=== PATIENT | male | born 1970 | race Caucasian/White ===

== ENCOUNTER 2016-11-13 15:27 | Emergency (ER) | payer BC ==
[2016-11-13 15:49] VITALS: BP 137/77; PULSE 103; TEMP 98.5; BMI 34.4
[2016-11-13] MEDS ORDERED: ACETAMINOPHEN 500 MG TABLET (FP) PO ONE (16:48)
--- NOTE | 2016-11-13 16:50 | PDOC ---
History of Present Illness - General Chief Complaint: Injury Stated Complaint: FALL NOT JOB INJURY Time Seen by Provider: 11/13/16 16:16 History Source: Patient Exam Limitations: No Limitations - History of Present Illness Initial Comments: 11/13/16 18:38 Chief complaint: Fall down 5 stairs forward twisting left foot and ankle, worsening lower back pain and right shoulder pain History of present illness: Patient is a 46-year-old male [place] whitewas[employer]. who is been out on disability with history of hypertension, anxiety, depression, social anxiety and posttraumatic stress syndrome. Pt. arrived here via ambulance. Patient reports that he was walking down carpeted steps in his home when he twisted his left foot and ankle causing him to fall forward in his head and landing with his right arm stretched outward. He reports that he does not remember anything for at least 30 seconds to a minute or 2 then felt groggy afterwards for 10-15 minutes.. Patient denies any change in vision or level of alertness except for grogginess for 10-15 minutes immediately after fall, or any nausea, vomiting or hemotympanum. Patient reports that he has had surgery on his right shoulder and rt. bicep ice with last surgery 07/01/2016. Patient reports that shoulder pain is currently a 9 prior to fall was a 2. Patient also has slight decreased range of motion of shoulder but since falling laterally posteriorly and anteriorly it has increased. Patient also has a history of bulging disc L2-L3, L4-L5 and a herniated disc L5- S1 with chronic lower back pain with radiculopathy down right leg to foot that he normally has. Patient reports that lower back pain currently is a 9 prior to this fall was a 3. Patient reports that he has left lateral ankle and foot pain that is currently a 5 out of 10. Patient has minimal swelling to his left dorsal foot. Patient also reports headache that currently as a 6 out of 10 throbbing. Pt. denies hitting anything for pain prior to arrival here. Patient reports the pain in the lower back is worse with bending forward and right shoulder pain is worse with raising his arm. He denies any numbness of his right arm. Patient reports having tingling in his right leg. Patient denies any saddle anesthesia or any incontinency. Pt. reports slight mid neck pain that currently is a 2 out of 10 with no numbness of arms b/l. 05/31/17 19:23 11/13/16 19:24 11/13/16 20:16 11/14/16 08:55 Occurred: reports: this afternoon Severity: reports: severe Pain Location: reports: back (worsening pain lower back with radiation down rt. posterior buttock/leg to ft.), head (frontal), lower extremity (left ankle/foot) , upper extremity (rt. shoulder) Method of Injury: Yes: fall Loss of Consciousness: unsure Associated Symptoms (Fall): headache (frontal), neck pain (minimal neck posterior), other (lower back with radiation down rt buttock/ leg to foot, left ankle/foot , rt. shoulder) Past History - Past Medical History Allergies/Adverse Reactions: Allergies Allergy/AdvReac Type Severity Reaction Status Date / Time No Known Allergies Allergy Verified 11/13/16 15:42 Home Medications: Ambulatory Orders Losartan Potassium 100 mg PO DAILY 03/25/15 Clonazepam [Klonopin] 2 mg PO BID 11/13/16 Duloxetine HCl [Cymbalta] 20 mg PO DAILY 11/13/16 Gabapentin 300 mg PO TID 11/13/16 Metoprolol Tartrate [Lopressor -] 50 mg PO DAILY 11/13/16 Cardiac Disorders: Yes (EKG CHANGES: 11/2014) HTN: Yes Psychiatric Problems: Yes (anxiety depression ptsd, social anxiety d/o ) Suicide Attempt (Hx): No Other medical history: lumbar bulging disc L2-L3, L4- L5, L5-S1 herniation - Surgical History Orthopedic Surgery: Yes (rt. shoulder supraspinatous X 2, bicep repair X 2, ) - Psycho/Social/Smoking Cessation Hx Anxiety: No Suicidal Ideation: No Smoking Status: No Smoking History: Never smoked Have you smoked in the past 12 months: No Number of Cigarettes Smoked Daily: 0 Information on smoking cessation initiated: No Hx Alcohol Use: No Drug/Substance Use Hx: No Substance Use Type: Alcohol Review of Systems - Review of Systems Able to Perform ROS?: Yes Constitutional: No: Symptoms Reported HEENTM: No: Symptoms Reported Respiratory: No: Symptoms reported Cardiac (ROS): No: Symptoms Reported ABD/GI: No: Symptoms Reported : No: Symptoms Reported Musculoskeletal: Yes: Back Pain (lower back with worsening pain with radiation down rt. leg), Joint Pain (left ankle/foot), Joint Swelling (left doral lateral foot), Neck Pain (minimal posterior neck midline ), Other (rt. shoulder pain worsening pain ) Integumentary: No: Symptoms Reported Neurological: Yes: Headache (frontal ), Tingling (right leg intermittently ) *Physical Exam - Vital Signs Last Vital Signs Temp Pulse Resp BP Pulse Ox 98.5 F 103 H 20 137/77 97 11/13/16 15:43 11/13/16 15:43 11/13/16 15:43 11/13/16 15:43 11/13/16 15:43 - Physical Exam General Appearance: Yes: Appropriately Dressed HEENT: positive: EOMI, [place], Normal ENT Inspection Neck: positive: Tender, Tender midline. negative: Decreased range of motion, Lymphadenopathy (R), Lymphadenopathy (L), Rigidity, Tender lateral Respiratory/Chest: positive: Lungs Clear, Normal Breath Sounds. negative: Chest Tender, Respiratory Distress Cardiovascular: positive: Regular Rhythm, Regular Rate, S1, S2 Gastrointestinal/Abdominal: positive: Normal Bowel Sounds, Soft. negative: Tender, Organomegaly, Distended, Guarding, Rebound, Tenderness, Hepatomegaly, Spleenomegaly Musculoskeletal: positive: Normal Inspection, Decreased Range of Motion (rt. shoulder ). negative: CVA Tenderness, CVA Tenderness (R), CVA Tenderness (L) Extremity: positive: Normal Capillary Refill, Normal Inspection, Tender ( rt.shoulder, left lateral ankle/foot dorsal ), Swelling (left lateral dorsal foot). negative: Normal Range of Motion (right shoulder) Integumentary: positive: Normal Color Neurologic: positive: lumber tripper II-XII NML intact, Fully Oriented, Alert, Normal Response, Motor Strength 5/5 (motor strength rt. shoulder decreased 3/4, lower extremities 5/5, left upper extremity 5/5), Respond to painful stimul (b/l ), Responsive. negative: Numbness, Sensory Deficit (legs b/l ) Deep Tendon Reflexes: Knee (L): 4+, Knee (R): 4+ Procedures - Consent Consent obtained: From Patient - Splinting Splint Location: Left: Foot, Ankle Pre-Made Type: aircast Joel Bandage: 3" Complications: No Medical Decision Making - Medical Decision Making 11/13/16 19:24 11/13/16 19:24 Patient is a 46-year-old male [employer] [facility]. who is been out on disability with history of hypertension, anxiety, depression, social anxiety and posttraumatic stress syndrome. Patient reports that he was walking down carpeted steps in his home when he twisted his left foot and ankle causing him to fall forward in his head and landing with his right arm stretched outward. He reports that he does not remember anything for at least 30 seconds to a minute or 2 felt than felt groggy afterwards for 10-15 minutes.. Patient denies any change in vision or level of alertness or any nausea vomiting or hemotympanum. Patient reports that he has had surgery on his right shoulder and rt. bicep ice with last surgery 07/01/2016. Patient reports that shoulder pain is currently a 9 prior to fall was a 2. Patient also has slight worsening or decrease range of motion of shoulder since falling laterally posteriorly and anteriorly. Patient also has a history of bulging disc L2-L3, L4-L5 and a herniated disc L5- S1 with chronic lower back pain with radiculopathy down right leg to foot that he normally has. Patient reports that lower back pain currently is a 9 prior to this fall was a 3. Patient reports that he has left lateral ankle and foot pain that is currently a 5 out of 10. Patient has minimal swelling to his left dorsal foot. Patient also reports headache that currently as a 6 out of 10 throbbing. Pt. denies hitting anything for pain prior to arrival here. Patient reports the pain in the lower back is worse with bending forward and right shoulder pain is worse with raising his arm. He denies any numbness of his right arm. Patient reports having tingling in his right leg. Patient denies any saddle anesthesia or any incontinency. Pt. reports slight mid neck pain that currently is a 2 out of 10 with no numbness of arms b/l. Patient is not on any antiicoagulants. He is with his EAP from [employer]. FAll R/O intracranial bleed R/O rt. shoulder esperanza injury rt. left foot/ankle injury r/o cervical neck injury r/o lumbar back esperanza injury injury Headache posterior neck pain left ankle/foot strain PLAN: CT of head without contrast no acute pathology or intracranial bleeding noted per xray rt. shoulder no discrete fractures identified right shoulder. Several small little numbness sees with sclerotic borders are seen within the humeral head suggestive of degenerative cysts, surgical clip is seen abutting the proximal humeral diametaphysis a long the acromium clavicular joint. A 0.5 cm density is seen adjacent to the posterior border humeral head suggestive of ossified loose osteochondral body. Impression no discrete fractures identified per Dr. Lockhart xray left ankle/foot is no radiographic evidence of acute fracture. A healed fracture of the distal metaphysis is noted. Focal degenerative bony spurring is seen along the tibiotalar joint medially. The left foot demonstrates no definite radiographic abnormality. No fracture is identified per Dr. Lockhart xray lumbar sacral spine there is no radiographic evidence of fracture, no dislocation, mild dextrocurvature as noted could be on the basis of paravertebral muscle spasm. There is possible mild L4-L5 and L5-S1 degenerative disc space narrowing bone detail at those levels is somewhat limited due to superimposed soft tissue on lateral imaging per Dr. Lockhart acetaminophen 1000 mg po now than every 8 hrs prn pain not give narcotic pain medication due to patient being on Klonopin for anxiety Patient complained of further mid posterior neck pain will get x-ray of cervical spine no discrete fractures identified. The C7 level is partially obscured due to overlapping soft tissue. Moderate C5-C6 degenerative disc space narrowing is seen with associated aided spondylosis. Follow Up with your orthopedist as soon as possible Return to emergency room if any new symptoms develop joel wrap air cast left ankle 11/13/16 19:41 DIRECTOR TREASURER Search Terms: Shad Thomas, 1970 Search Date: 11/13/2016 06:13: 49 PM The Drug Utilization Report below displays all of the controlled substance prescriptions, if any, that your patient has filled in the last twelve months. The information displayed on this report is compiled from pharmacy submissions to the Department, and accurately reflects the information as submitted by the pharmacies. This report was requested by: Alia Chiang | Reference #: [id number] Others' Prescriptions Patient Name: Shad Thomas Date: 1970 Address: [address] [place] [address] [place] [address] Sex: Male Rx Written Rx Dispensed Drug Quantity Days Supply Prescriber Name 10/28/2016 11/01/2016 clonazepam 0.5 mg tablet 40 10 Samson Tang MD 10/04/2016 10/04/2016 clonazepam 0.5 mg tablet 120 30 Samson Tang MD 09/26/2016 09/26/2016 clonazepam 0.5 mg tablet 28 7 Samson Tang MD 11/14/16 09:00 11/14/16 09:00 *DC/Admit/Observation/Transfer Diagnosis at time of Disposition: Fall (on) (from) other stairs and steps, initial encounter, Lumbar back pain with radiculopathy affecting right lower extremity, Neck pain, acute Shoulder pain, right Qualifiers: Chronicity: acute Qualified Code(s): M25.511 - Pain in right shoulder Left ankle sprain Qualifiers: Encounter type: initial encounter Involved ligament of ankle: unspecified ligament Qualified Code(s): S93.402A - Sprain of unspecified ligament of left ankle, initial encounter Head injury due to trauma Qualifiers: Encounter type: initial encounter Qualified Code(s): S09.90XA - Unspecified injury of head, initial encounter - Discharge Dispostion Disposition: HOME Condition at time of disposition: Stable - Referrals Referrals: Samson Tang [Primary Care Provider] - Andrey Guerin MD [Staff Physician] - - Patient Instructions Additional Instructions: He was transported by ambulance here today Avoid any strenuous activities Elevate left leg and apply ice to left lateral ankle, right shoulder area every 2 hours for 15 minutes each time today and tomorrow Wear Joel wrap to left foot and ankle and air cast during the day take off at night Return to emergency room if symptoms worsen any weakness of upper or lower extremities or numbness of them Follow up with orthopedist as soon as possible for further evaluation Take acetaminophen thousand milligrams every 8 hours or 650 mg every 6 hours as needed for pain Patient voiced understanding of discharge instructions and all questions were answered
[2016-11-13] MEDS ORDERED: ACETAMINOPHEN 500 MG TABLET (FP) ONE (16:57)
== END 2016-11-13 20:30 | disposition home or self-care (01) ==
LOC: JERFT 15:27
DX: S93.402A Sprain of unspecified ligament of left ankle, initial encounter (principal); S09.90XA Unspecified injury of head, initial encounter; I10 Essential (primary) hypertension; F41.8 Other specified anxiety disorders; F43.10 Post-traumatic stress disorder, unspecified; W10.9XXA Fall (on) (from) unspecified stairs and steps, initial encounter; Y93.89 Activity, other specified; Y92.009 Unspecified place in unspecified non-institutional (private) residence as the place of occurrence of the external cause
CPT/HCPCS: 70450-TC; 72050-TC; 72100-TC; 73030-TC-RT; 73610-TC-LT; 73610-TC-RT; 73630-TC-LT; 73630-TC-RT; 99281-25

== ENCOUNTER 2016-11-18 08:31 | Emergency (ER) | payer BC ==
[2016-11-18 08:46] VITALS: BMI 33.5
--- NOTE | 2016-11-18 09:44 | PDOC ---
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 Patient was in this ED 11/13/16 s/p mechanical fall with head trauma and LOC. At that time he had a negative CT scan of head and no fractures found on x rays. He reports a constant intractable global h/a that is 8/10 w/o tylenol and 6/10 with tylenol. He denies any new focal neuro deficits, no numbness, weakness or paresthesia other than chronic RLE weakness and mild numbness/burning due to herniated disk. He denies n/v, loc, sob, chest pain, palpitations. He is on daily clonazepam due to his psychiatric conditions, 4mg daily last prescribed by his PCP Dr Samson Tang (confirmed), however he ran out today because he has required 6mg/day. He has also been drinking 3-6 beers per day. He used to see psychiatrist Dr Bethany Butcher, but can no longer afford her preciado services and has been unable to find a new psychiatrist who accepts his insurance and takes new patients. He is not open to attending detox. His structural steel engineer captainis at bedside. He is part of the [facility]. He took 6 mg Clonazepam and drank a 6 pack of beer since midnight. 11/18/16 10:13 Timing/Duration: reports: 1 week, constant Severity: Yes: moderate Associated Symptoms: reports: insomnia, slurred speech. denies: loss of consciousness, nausea/vomiting, numbness in legs/feet, paresthesia, seizures, tingling in legs/feet, vision changes Past History - Travel Traveled outside of the country in the last 30 days: No Close contact w/someone who was outside of country & ill: No - Past Medical History Allergies/Adverse Reactions: Allergies Allergy/AdvReac Type Severity Reaction Status Date / Time No Known Allergies Allergy Verified 11/18/16 08:38 Home Medications: Ambulatory Orders Losartan Potassium 100 mg PO DAILY 03/25/15 Clonazepam [Klonopin] 2 mg PO BID 11/13/16 Gabapentin 300 mg PO TID 11/13/16 Metoprolol Tartrate [Lopressor -] 50 mg PO DAILY 11/13/16 Fluoxetine HCl [Prozac] 20 mg PO DAILY 11/18/16 Cardiac Disorders: Yes (EKG CHANGES: 11/2014) HTN: Yes Psychiatric Problems: Yes (anxiety depression ptsd, social anxiety d/o ) Suicide Attempt (Hx): No - Surgical History Orthopedic Surgery: Yes (rt. shoulder supraspinatous X 2, bicep repair X 2, ) - Psycho/Social/Smoking Cessation Hx Anxiety: Yes Suicidal Ideation: No Smoking Status: No Smoking History: Unknown if ever smoked Have you smoked in the past 12 months: No Number of Cigarettes Smoked Daily: 0 Hx Alcohol Use: Yes (3-6 beers/day) Drug/Substance Use Hx: No Substance Use Type: Alcohol Hx Substance Use Treatment: No Patient Lives Alone: Yes Neuro Specific PMHX - Complaint Specific PMHX Glaucoma: No Herniated Disk: Yes Laminectomy: No Migraine: No Multiple Sclerosis: No Neuropathy: No TIA: No Review of Systems - Review of Systems Able to Perform ROS?: Yes Is the patient limited Kazakh proficient: No Constitutional: Yes: Weakness. No: Diaphoresis, Fever HEENTM: No: Blurred Vision, Double Vision Respiratory: No: Cough, Shortness of Breath, Wheezing, Hemoptysis Cardiac (ROS): Yes: Lightheadedness. No: Chest Pain, Irregular Heart Rate, Palpitations, Syncope, Chest Tightness ABD/GI: No: Abdominal Distended, Diarrhea, Nausea, Poor Appetite, Vomiting, Abdominal cramping, Tarry Stools : No: Dysuria Musculoskeletal: No: Muscle Pain Integumentary: No: Bruising, Flushing Neurological: Yes: Headache, Pre-Existing Deficit (rle slight weakness, numbness , pain ), Dizziness. No: Numbness, Paresthesia, Ataxia Psychiatric: Yes: Anxiety, Depression, Emotional Problems Endocrine: No: Flushing, Unexplained Weight Gain, Unexplained Weight Loss, Change in Weight Hematologic/Lymphatic: No: Anemia, Easy Bruising, Bleeding Diathesis *Physical Exam - Vital Signs Last Vital Signs Temp Pulse Resp BP Pulse Ox 97.9 F 74 18 119/77 100 11/18/16 08:38 11/18/16 08:38 11/18/16 08:38 11/18/16 08:38 11/18/16 08:38 - Physical Exam General Appearance: Yes: Nourished, Disheveled, Mild Distress, Intoxicated ( slight smell of alcohol ) HEENT: positive: EOMI, [place]. negative: Normal Voice (slightly slurred ), Photophobia, Scleral Icterus (R), Scleral Icterus (L), Rhinorrhea, Lesions, Batres Neck: positive: Supple. negative: Tender Respiratory/Chest: positive: Lungs Clear, Normal Breath Sounds. negative: Chest Tender, Respiratory Distress, Rhonchi, Wheezing Cardiovascular: positive: Regular Rhythm, Regular Rate, S1, S2. negative: JVD Gastrointestinal/Abdominal: positive: Normal Bowel Sounds, Soft. negative: Tender, Distended, Mass, Hepatomegaly, Spleenomegaly Musculoskeletal: negative: CVA Tenderness Extremity: negative: Calf Tenderness Integumentary: positive: Normal Color, Dry, Warm Neurologic: positive: accounts manager II-XII NML intact, Fully Oriented, Alert, Motor Strength 5/5 (RLW 4+/5), Responsive, Numbness (slight numbness rle). negative: Normal Mood/Affect (anxious ), Facial Droop, Confused, Disoriented Deep Tendon Reflexes: Knee (L): 1+, Knee (R): 1+, Bicep (L): 1+, Bicep (R): 1+ ED Treatment Course - ADDITIONAL ORDERS Additional order review: 11/18/16 10:47 Patient likely suffers from h/a due to postconcussion syndroms. Given that there are no CT findings from last admission and that there are no new neural findings, patient is stable for outpatient managements with NSAIDS or tylenol Patient was recommeded admission to detox center to wean off ETOH but patient declines. Dr Tang contacted and willing to see patient today *DC/Admit/Observation/Transfer Diagnosis at time of Disposition: Headache, Anxiety, Lightheadedness - Discharge Dispostion Disposition: HOME Condition at time of disposition: Good Admit: No
[2016-11-18] MEDS ORDERED: IBUPROFEN 600 MG TABLET (FP) PO ONE ×2 (09:49→10:56)
--- NOTE | 2016-11-18 09:56 | PDOC ---
Attending Attestation - Resident Resident Name: Crys Sharpe - ED Attending Attestation I have performed the following: I have examined & evaluated the patient, The case was reviewed & discussed with the resident, I agree w/resident's findings & plan, Exceptions are as noted - HPI HPI: 11/18/16 09:53 Agree with the resident's HPI as documented in the electronic medical record. - Physicial Exam PE: 11/18/16 09:54 Agree with the resident's physical examination as documented in the electronic medical record. - Medical Decision Making 11/18/16 09:54 46-year-old male with history of 9-11 PTSD, hypertension, alcohol and benzo dependence presents the emergency Department with complaints of headache one week after falling and striking his head; the patient was seen in the ED 1 week ago and had a negative head CT. The patient states that he ran out of his benzos and requests a refill for that prescription. Plan: 1. No need for repeat head CT as the patient is not on anticoagulant therapy. Likely the patient has postconcussive syndrome that can be treated with Tylenol or NSAIDs and follow-up with neurology as an outpatient. 2. The resident has spoken to the patient's primary care physician who is been chronically prescribing him benzos for the past 3 months. His primary care physician is willing to see the patient in his office today. 3. Check an alcohol dependence: The patient was offered detox at [facility] but he declines at this time.
[2016-11-18 11:34] VITALS: BP 120/74; PULSE 78; TEMP 98
== END 2016-11-18 11:29 | disposition home or self-care (01) ==
LOC: JER 08:31
DX: F07.81 Postconcussional syndrome (principal); G44.309 Post-traumatic headache, unspecified, not intractable; F41.8 Other specified anxiety disorders; F43.10 Post-traumatic stress disorder, unspecified
CPT/HCPCS: 99282-25

== ENCOUNTER 2016-11-18 12:12 | Inpatient (IN) | payer OTHER ==
[2016-11-18 14:01] VITALS: BMI 33.5
--- NOTE | 2016-11-18 14:28 | HP ---
CIWA Score - CIWA Score Nausea/Vomitin Muscle Tremors: 3 Anxiety: 3 Agitation: 3 Paroxysmal Sweats: 1-Minimal Palms Moist Orientation: 0-Oriented Tacttile Disturbances: 2-Mild Itch/Numbness/Burn Auditory Disturbances: 2-Mild Harshness/Frighten Visual Disturbances: 2-Mild Sensitivity Headache: 2-Mild CIWA-Ar Total Score: 21 Admission ROS BHS - HPI Chief Complaint: I NEED HELP TO STOP USING ALCOHOL AND KLONOPIN Allergies/Adverse Reactions: Allergies Allergy/AdvReac Type Severity Reaction Status Date / Time No Known Allergies Allergy Verified 11/18/16 08:38 History of Present Illness: THIS 46 YEARS OLD MALE WITH ALCOHOL DEPENDENCE AND KLONOPIN DEPENDENCE, WITHDRAWAL SYMPTOM,NEVER BEEN IN DETOX BEFORE HYPERTENSION ANXIETY,DEPRESSION PTSD NEEDED HELP TO STOP DRINKING AN DKLONOPIN Exam Limitations: No Limitations - Ebola screening Have you traveled outside of the country in the last 21 days: No Have you had contact with anyone from an Ebola affected area: No Have you been sick,other than usual withdrawal symptoms: No - Review of Systems Constitutional: Loss of Appetite, Night Sweats, Changes in sleep, Weakness EENT: reports: Nose Congestion Respiratory: reports: No Symptoms reported Cardiac: reports: No Symptoms Reported GI: reports: Nausea, Vomiting, Abdominal cramping : reports: No Symptoms Reported Musculoskeletal: reports: Back Pain, Muscle Pain Integumentary: reports: Dryness Neuro: reports: Headache, Tremors Endocrine: reports: No Symptoms Reported Hematology: reports: No Symptoms Reported Psychiatric: reports: Anxious (PTSD), Depressed Patient History - Patient Medical History Hx Anemia: No Hx Asthma: No Hx Chronic Obstructive Pulmonary Disease (COPD): No Hx Cancer: No Hx Cardiac Disorders: Yes (EKG CHANGES: 11/2014) Hx Congestive Heart Failure: No Hx Hypertension: Yes (ON MED) Hx Hypercholesterolemia: Yes (ON MED) Hx Pacemaker: No HX Cerebrovascular Accident: No Hx Seizures: No Hx Dementia: No Hx Diabetes: No Hx Gastrointestinal Disorders: No Hx Liver Disease: No Hx Genitourinary Disorders: No Hx Sexually Transmitted Disorders: No Hx Renal Disease (ESRD): No Hx Thyroid Disease: No Hx Human Immunodeficiency Virus (HIV): No (NEGATIVE LAST 2014) Hx Hepatitis C: No Hx Depression: Yes (ANXIETY) Hx Suicide Attempt: No Hx Bipolar Disorder: No Hx Schizophrenia: No Other Medical History: PTSD,NO SUICIDAL,NO HOMICIDAL - Patient Surgical History Past Surgical History: No Hx Orthopedic Surgery: Yes (rt. shoulder supraspinatous X 2, bicep repair X 2, ) - PPD History Previous Implant?: Yes Documented Results: Negative w/o proof Implanted On Prior [facility] Admission?: No PPD to be Administered?: Yes - Smoking Cessation Smoking history: Unknown if ever smoked Have you smoked in the past 12 months: No Aproximately how many cigarettes per day: 0 - Substance & Tx. History Hx Alcohol Use: Yes Hx Substance Use: No Substance Use Type: Alcohol, Tranquilizers Hx Substance Use Treatment: No - Substances Abused Alcohol Route: Oral Frequency: Daily Amount used: 6pk beer Age of first use: 19 Date of Last Use: 11/18/16 Benzodiazepine (Klonopin) Route: Oral Frequency: Daily Amount used: 4-6mg Age of first use: 34 Date of Last Use: 11/18/16 Family Disease History - Family Disease History Family History: Denies Admission Physical Exam [facility] - Vital Signs Vital Signs: Vital Signs - 24 hr 11/18/16 13:54 Temperature 97.5 F L Pulse Rate 79 Respiratory 20 Rate Blood Pressure 126/72 - Physical General Appearance: Yes: Moderate Distress, Tremorous, Irritable, Sweating, Anxious HEENTM: Yes: Nasal Congestion Respiratory: Yes: Lungs Clear, Normal Breath Sounds, No Respiratory Distress Neck: Yes: Within Normal Limits Breast: Yes: Within Normal Limits Cardiology: Yes: Within Normal Limits, Regular Rhythm, Regular Rate, S1, S2 Abdominal: Yes: Within Normal Limits, Normal Bowel Sounds, Non Tender, Flat, Soft Genitourinary: Yes: Within Normal Limits Back: Yes: Muscle Spasm Musculoskeletal: Yes: Back pain, Joint Stiffness, Muscle Pain Extremities: Yes: Tremors Neurological: Yes: nurse practitioner home assessments II-XII NML intact, Fully Oriented, Alert, Motor Strength 5/5 Integumentary: Yes: Dry Lymphatic: Yes: Within Normal Limits - Diagnostic (1) Alcohol dependence with uncomplicated withdrawal Status: Acute (2) Essential hypertension Status: Acute (3) History of atrial fibrillation Status: Acute (4) Low back pain Status: Acute (5) Herniated disc Status: Acute (6) Hypercholesterolemia Status: Acute (7) History of head injury Status: Acute (8) Chronic shoulder pain Status: Acute (9) Anxiety and depression Status: Acute Cleared for Admission [facility] - Detox or Rehab [facility] Level of Care: Medically Managed Detox Regimen/Protocol: Valium [facility] Breath Alcohol Content Breath Alcohol Content: 0 Urine Drug Screen - Results Drug Screen Negative: No Urine Drug Screen Results: BZO-Benzodiazepines
[2016-11-18] MEDS ORDERED: IBUPROFEN 400 MG TABLET (FP) PO PRN (15:24)
[2016-11-18] MEDS ORDERED: MENTHOL/PHENOL 1 EACH UD MM PRN (15:24)
[2016-11-18] MEDS ORDERED: guaiFENesin/D-METHORPHAN HB 10 ML UNIT-DOSE CUPS PO PRN (15:24)
[2016-11-18] MEDS ORDERED: MAGNESIUM HYDROX 2400MG/30ML ORAL SUSPENSION 30 ML CUP PO PRN (15:24)
[2016-11-18] MEDS ORDERED: LOPERAMIDE HCL 2 MG CAPSULE PO PRN (15:24)
[2016-11-18] MEDS ORDERED: diphenhydrAMINE HCL 50 MG CAPSULE PO PRN (15:24)
[2016-11-18] MEDS ORDERED: hydrOXYzine PAMOATE 50 MG CAPSULE (FP) PO PRN (15:24)
[2016-11-18] MEDS ORDERED: ACETAMINOPHEN 325 MG TABLET (FP) PO PRN (15:24)
[2016-11-18] MEDS ORDERED: diazePAM 5 MG TABLET PO PRN (15:24)
[2016-11-18] MEDS ORDERED: MAG HYDROX/AL HYDROX/SIMETH 30 ML UNIT-DOSE CUP PO PRN (15:24)
[2016-11-18] MEDS ORDERED: MAGNESIUM CITRATE 300 ML BOTTLE PO PRN (15:24)
[2016-11-18] MEDS ORDERED: P-EPHED 60MG/TRIPROLIDI 2.5MG TABLET PO PRN (15:24)
[2016-11-18] MEDS ORDERED: diazePAM 5 MG TABLET PO ONE (17:00)
[2016-11-18 18:58] LABS: URINE APPEARANCE CLEAR; URINE BILIRUBIN NEGATIVE (NEGATIVE); URINE BLOOD NEGATIVE (NEGATIVE); URINE COLOR STRAW; URINE GLUCOSE (UA) NEGATIVE (NEGATIVE); URINE KETONE NEGATIVE (NEGATIVE); URINE LEUK ESTERASE NEGATIVE (NEGATIVE); URINE NITRITE NEGATIVE (NEGATIVE); URINE PROTEIN NEGATIVE (NEGATIVE); URINE UROBILINOGEN NEGATIVE E.U./dl (0.2-1.0)
[2016-11-18] MEDS ORDERED: THIAMINE HCL 100 MG TABLET (FP) PO SCH (22:00)
[2016-11-18] MEDS ORDERED: diazePAM 5 MG TABLET PO SCH (22:00)
[2016-11-18 22:07] VITALS: BP 108/65; PULSE 81; TEMP 96.6
--- NOTE | 2016-11-18 23:47 | DS ---
[facility] Detox Discharge Summary Admission Date: 11/18/16 Discharge Date: 11/18/16 - History Present History: Alcohol Dependence, Sedative Dependence Additional Comments: CLIENT HAD AN INCIDENT WITH ANOTHER PATIENT ON THE FLOOR AND STATES HE FEELS THREATENED. HE WAS OFFERED TO BE TRANSFERRED TO [facility] TO CONTINUE HIS DETOX BUT HE REFUSED AND STATED HE WANTED TO LEAVE AMA. - Physical Exam Results Vital Signs: Vital Signs Temperature 96.6 F L 11/18/16 22:06 Pulse Rate 81 11/18/16 22:06 Respiratory Rate 18 11/18/16 22:06 Blood Pressure 108/65 11/18/16 22:06 O2 Sat by Pulse Oximetry (%) - Medication Discharge Medications: Ambulatory Orders Clonazepam [Klonopin] 2 mg PO BID 11/13/16 Gabapentin 300 mg PO TID 11/13/16 Metoprolol Tartrate [Lopressor -] 50 mg PO DAILY 11/13/16 Amlodipine Besylate/Benazepril [Lotrel 10-20 mg Capsule] 1 cap PO DAILY Fluoxetine HCl [Prozac] 20 mg PO DAILY 11/18/16 Gabapentin 600 mg PO HS 11/18/16 - AMA Did Patient Leave Against Medical Advice: Yes
[2016-11-19] MEDS ORDERED: PRENATAL VITAMINS W/ FOLIC ACID TABLET (FP) PO SCH (10:00)
[2016-11-19] MEDS ORDERED: PATIENT'S OWN MEDICATION (NON-FORMULARY) (Amlodipine Besylate/Benazepril [Lotrel 10-20 Mg PO SCH (10:00)
[2016-11-19] MEDS ORDERED: LISINOPRIL 20 MG TABLET (FP) PO SCH (10:00)
[2016-11-19] MEDS ORDERED: amLODIPine BESYLATE 10 MG TABLET (FP) PO SCH (10:00)
[2016-11-19] MEDS ORDERED: METOPROLOL TARTRATE 50 MG TABLET (FP) PO SCH (10:00)
--- NOTE | 2016-11-19 12:01 | EKG ---
Test Reason : Blood Pressure : / mmHG Vent. Rate : 062 BPM Atrial Rate : 062 BPM P-R Int : 148 ms QRS Dur : 092 ms QT Int : 410 ms P-R-T Axes : 016 -01 005 degrees QTc Int : 416 ms NORMAL SINUS RHYTHM MODERATE VOLTAGE CRITERIA FOR LVH, MAY BE NORMAL VARIANT BORDERLINE ECG WHEN COMPARED WITH ECG OF 07-DEC-2014 15:39, VENT. RATE HAS DECREASED BY 33 BPM CLINICAL CORRELATION IS RECOMMENDED Confirmed by ASHUTOSH FARNSWORTH MD ([id number]) on 11/19/2016 12:00:47 PM Referred By: Confirmed By:ASHUTOSH FARNSWORTH MD
[2016-11-20] MEDS ORDERED: diazePAM 5 MG TABLET PO SCH (10:00)
[2016-11-22] MEDS ORDERED: diazePAM 5 MG TABLET PO SCH (10:00)
== END 2016-11-18 23:57 | disposition left against medical advice (07) | DRG 894 ==
LOC: YASAS 12:12 → Y3N 15:07
PROVIDERS: ADMIT Internal Medicine; ATTEND Internal Medicine
PROC: HZ2ZZZZ Detoxification Services for Substance Abuse Treatment (ICD-10-PCS; principal; 2016-11-18)
DX: F10.230 Alcohol dependence with withdrawal, uncomplicated (principal); F41.8 Other specified anxiety disorders; F43.10 Post-traumatic stress disorder, unspecified; I48.91 Unspecified atrial fibrillation; Z79.01 Long term (current) use of anticoagulants; M54.5 Low back pain; E78.00 Pure hypercholesterolemia, unspecified
CPT/HCPCS: 81003; 93005; 93010

== ENCOUNTER 2017-05-03 14:32 | Emergency (ER) | payer BC, OTHER ==
[2017-05-03 14:42] VITALS: TEMP 98.7; BMI 33.5
--- NOTE | 2017-05-03 15:44 | PDOC ---
History of Present Illness - General Chief Complaint: Psychiatric Stated Complaint: ANIEXTY ATTACK Time Seen by Provider: 05/03/17 15:09 History Source: Patient Exam Limitations: No Limitations - History of Present Illness Initial Comments: 46-year-old male with PTSD and anxiety along with alcohol abuse and benzo abuse presents to the ED with complaints of an anxiety attack. 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 Patient denies feelings of hurting others or himself presently but states was recently switched to Cymbalta and feels that this may not be enough to deal with his feelings and symptoms. Patient states since arrival to the ED he is asymptomatic and expresses no anxiety Timing/Duration: just prior to arrival Severity: mild Associated Symptoms: anxiety Past History - Past Medical History Allergies/Adverse Reactions: Allergies No Known Allergies Allergy (Verified 05/03/17 14:42) Home Medications: Ambulatory Orders Metoprolol Tartrate [Lopressor -] 50 mg PO DAILY 11/13/16 Amlodipine Besylate/Benazepril [Lotrel 10-20 mg Capsule] 1 cap PO DAILY Duloxetine HCl [Cymbalta] 30 mg PO DAILY 05/03/17 Psychosocial History: Yes: anxiety, depression, panic attacks, post traumatic stress Surgical History: Yes: Noncontributory - Family History Significant Family History: Yes: no pertinent family hx - Immunization History Immunization Up to Date: Yes - Social History Smoking History: No Smoking Status: Unknown if ever smoked Number of Cigarettes Per Day: 0 Alcohol Use: occasionally Drug Use: none Patient Lives Alone: No Lives With: parents (father) *Review of Systems - Review of Systems Able to Perform ROS?: Yes Constitutional: No: Symptoms Reported HEENTM: No: Symptoms Reported Respiratory: No: Symptoms reported Cardiac (ROS): No: Symptoms Reported ABD/GI: No: Symptoms Reported : No: Symptoms Reported Musculoskeletal: No: Symptoms Reported Integumentary: No: Symptoms Reported Psychiatric: Yes: Anxiety, Depression, Stressors *Physical Exam - Vital Signs Last Vital Signs Temp Pulse Resp BP Pulse Ox 98.7 F 99 H 16 144/88 100 05/03/17 14:35 05/03/17 14:35 05/03/17 14:35 05/03/17 14:35 05/03/17 14:35 - Physical Exam General Appearance: Yes: Nourished, Appropriately Dressed. No: Apparent Distress Integumentary: positive: Normal Color, Warm, Moist Neurologic: positive: Normal Mood/Affect (calm with good eye contact), Motor Strength 5/5 (ambulatory) Plan - Progress Note Progress Note: 05/03/17 15:50 Patient initially here for panic attack that states symptoms resolved prior to arrival. Patient here able to contract for safety and has a program he is involved with on Friday and Friday along with a local [employer] study he attends tomorrow. Patient recommended to return to ED at any given time if symptoms return or worsen. *DC/Admit/Observation/Transfer Diagnosis at time of Disposition: Anxiety - Discharge Dispostion Disposition: HOME Condition at time of disposition: Improved - Referrals Referrals: Samson Tang [Primary Care Provider] - - Patient Instructions Printed Discharge Instructions: DI for Anxiety -- Adult Additional Instructions: Please utilize all resources In order to cope with your anxiety and substance abuse. Please understand that youmay go to the nearest ED if any given time if you experience feelings of hopelessness, helplessness, feelings to hurt herself or others. - Post Discharge Activity
[2017-05-03 15:58] VITALS: BP 139/78; PULSE 89
== END 2017-05-03 15:58 | disposition home or self-care (01) ==
LOC: JERFT 14:32 → JER 14:32
DX: F41.9 Anxiety disorder, unspecified (principal); F43.10 Post-traumatic stress disorder, unspecified; F10.10 Alcohol abuse, uncomplicated; F13.10 Sedative, hypnotic or anxiolytic abuse, uncomplicated
CPT/HCPCS: 99282-25

== ENCOUNTER 2017-07-26 15:14 | Inpatient (IN) | payer BC, OTHER ==
[2017-07-26 15:20] VITALS: BMI 32.8
--- NOTE | 2017-07-26 15:47 | PDOC ---
Attending Attestation - HPI HPI: 07/26/17 15:58 47 y/o M with a PMH of PTSD, anxiety, depression, panic disorder, HTN, sinusitis presents to the ED with lightheadedness this morning. Patient is a human resources records clerk/kiln operator helper. He measured his BP and HR after feeling lightheaded and noticed his BP was lower than usual and his HR was fluctuating. He is currently on metoprolol and amlodipine. He did not take his amlodipine today. Patient waited to come to the ED because he thought it could be due to his anxiety. Denies chest pain, SOB. Denies fever, chills. Denies nausea, vomiting, diarrhea. - Physicial Exam PE: 07/26/17 15:58 GENERAL: Awake, alert, and fully oriented, in no acute distress HEAD: No signs of trauma EYES: PERRLA, EOMI, sclera anicteric, conjunctiva clear ENT: Auricles normal inspection, hearing grossly normal, nares patent, oropharynx clear without exudates. Moist mucosa NECK: Normal ROM, supple, no lymphadenopathy, JVD, or masses LUNGS: Breath sounds equal, clear to auscultation bilaterally. No wheezes, and no crackles HEART: tachy but regular to 150, normal S1 and S2, no murmurs, rubs or gallops ABDOMEN: Soft, nontender, normoactive bowel sounds. No guarding, no rebound. No masses EXTREMITIES: Normal range of motion, no edema. No clubbing or cyanosis. No cords, erythema, or tenderness NEUROLOGICAL: Normal speech, cranial nerves intact, negative pronator drift, 5/ 5 strength in all 4 extremities, normal sensation to light touch in all 4 extremities, normal cerebellar exam, normal gait, normal reflexes and tone SKIN: Warm, Dry, normal turgor, no rashes or lesions noted. - Medical Decision Making 07/26/17 15:58 Documentation prepared by Doris Armando, acting as claim review medical director for Tiffany Jimenez MD. <Doris Armando - Last Filed: 07/26/17 15:58> - Resident Resident Name: Jim Chambers - ED Attending Attestation I have performed the following: I have examined & evaluated the patient, The case was reviewed & discussed with the resident, I agree w/resident's findings & plan, Exceptions are as noted - Medical Decision Making 07/26/17 15:46 47-year-old male with multiple medical problems including hypertension who presents to the emergency department with lightheadedness since this morning. Patient found to be in a flutter at a rate of 150. Exam unremarkable other than tachycardia. We'll obtain labs, chest x-ray, provide rate control and likely admit. 07/26/17 16:25 S/p IV metoprolol 5mg, HR from 148 ->120s, BP 120/104, given another dose of metop 5mg IV 120s ->100s, BP 108/84. 1L NS going, will reassess HR 07/26/17 16:41 HR 130s, BP remains low 100 systolic. <Tiffany Jimenez - Last Filed: 07/26/17 16:42>
[2017-07-26 15:58] LABS: EOS % 1.2 % (0-4.5); HEMATOCRIT 42.9 % (35.4-49); HEMOGLOBIN 14.5 GM/dL (11.7-16.9); LYMPH % 22.3 % (8-40); MCH 29.5 pg (25.7-33.7); MCHC 33.8 g/dl (32.0-35.9); MEAN CELL VOLUME 87.2 fl (80-96); MEAN PLT VOLUME 8.6 fl (7.5-11.1); MONO % 8.8 % (3.8-10.2); NEUT % 66.7 % (42.8-82.8); PLATELET COUNT 297 K/MM3 (134-434); RBC 4.92 M/mm3 (4.00-5.60); WHITE BLOOD COUNT 11.4 K/mm3 (4.0-10.0)
[2017-07-26] MEDS ORDERED: METOPROLOL TARTRATE 5 MG/5 ML VIAL IVPUSH ONE ×3 (16:02→16:44)
[2017-07-26] MEDS ORDERED: SODIUM CHLORIDE 0.9% 1000 ML INFUS.BAG IV ONE (16:02)
[2017-07-26] MEDS ORDERED: FAMOTIDINE 20 MG/50 ML IVPB 20 MG/50 ML MG IVPB ONE ×2 (16:02→16:33)
[2017-07-26] MEDS ORDERED: METOPROLOL TARTRATE 5 MG/5 ML VIAL ONE ×2 (16:06→16:16)
--- NOTE | 2017-07-26 16:07 | EKG ---
Test Reason : Blood Pressure : / mmHG Vent. Rate : 150 BPM Atrial Rate : 300 BPM P-R Int : 000 ms QRS Dur : 086 ms QT Int : 336 ms P-R-T Axes : -88 024 250 degrees QTc Int : 530 ms ATRIAL FLUTTER WITH 2:1 A-V CONDUCTION MARKED ST ABNORMALITY, POSSIBLE INFERIOR SUBENDOCARDIAL INJURY ABNORMAL ECG WHEN COMPARED WITH ECG OF 18-NOV-2016 16:39, ATRIAL FLUTTER HAS REPLACED SINUS RHYTHM VENT. RATE HAS INCREASED BY [address] NOW DEPRESSED IN INFERIOR LEADS ST NOW DEPRESSED IN LATERAL LEADS T WAVE INVERSION MORE EVIDENT IN INFERIOR LEADS T WAVE INVERSION NOW EVIDENT IN ANTERIOR LEADS Confirmed by LACEY BOYD, DIONISIO ([id number]) on 07/26/2017 4:06:39 PM Referred By: Confirmed By:DIONISIO RAHMAN MD
[2017-07-26 16:16] LABS: INR 1.07 (0.82-1.09); PROTHROMBIN TIME (PATIENT) 12.1 SEC (9.98-11.88)
[2017-07-26 16:24] LABS: ALBUMIN 4.3 g/dl (3.4-5.0); ANION GAP 9 (8-16); BILIRUBIN,TOTAL 0.4 mg/dL (0.2-1.0); BLOOD UREA NITROGEN 12 mg/dL (7-18); CALCIUM 8.8 mg/dL (8.5-10.1); CHLORIDE 104 mmol/L (98-107); CO2 25 mmol/L (21-32); CREATININE 1.4 mg/dL (0.7-1.3); GLUCOSE,RANDOM 110 mg/dL (74-106); MAGNESIUM 1.8 mg/dL (1.8-2.4); POTASSIUM 4.5 mmol/L (3.5-5.1); SGOT/AST 18 U/L (15-37); SGPT/ALT 49 U/L (12-78); SODIUM 138 mmol/L (136-145); TOT PROT 7.7 g/dl (6.4-8.2)
[2017-07-26 16:27] LABS: ALK PHOS 85 U/L (45-117)
--- NOTE | 2017-07-26 16:51 | PDOC ---
History of Present Illness - General Chief Complaint: Blood Pressure Problem Stated Complaint: BLOOD PRESSURE PROBLEM Time Seen by Provider: 07/26/17 15:27 History Source: Patient Exam Limitations: No Limitations - History of Present Illness Initial Comments: 07/26/17 16:46 The patient is a 47M with a PMH of HTN, anxiety, depression, PTSD who presents to the ER with lightheadedness. The patient states that for the past 5 years, he 's felt his heart race occasionally. Today, he felt a similar sensation as he was laying on his couch. When he got up, he became uncharacteristically lightheaded and decided to come to the ER. He currently states that he feels like he has some heartburt, but denies any current CP, SOB, lightheadedness, nausea, and vomiting. Of note, the patient has a hx of EtOH and clonopin abuse, both stopped in December 2016. Past History - Past Medical History Allergies/Adverse Reactions: Allergies Allergy/AdvReac Type Severity Reaction Status Date / Time No Known Allergies Allergy Verified 07/26/17 15:20 Home Medications: Ambulatory Orders Metoprolol Tartrate [Lopressor -] 50 mg PO DAILY 11/13/16 Duloxetine HCl [Cymbalta] 30 mg PO DAILY 05/03/17 Amlodipine Besylate/Benazepril [Lotrel 2.5-10 mg Capsule] 2 each PO DAILY Montelukast Sodium [Singulair] 10 mg PO DAILY 07/26/17 Prazosin HCl 5 mg PO HS 07/26/17 Ranitidine HCl [Zantac 75] 75 mg PO DAILY 07/26/17 Anemia: No Asthma: No Cancer: No Cardiac Disorders: Yes (EKG CHANGES: 11/2014) CVA: No COPD: No CHF: No DVT: No Dementia: No Diabetes: No GI Disorders: No Disorders: No HTN: Yes (ON MED) Hypercholesterolemia: Yes (ON MED) Kidney Stones: No Liver Disease: No Psychiatric Problems: Yes (anxiety depression ptsd, social anxiety d/o ) Seizures: No Thyroid Disease: No - Surgical History Orthopedic Surgery: Yes (rt. shoulder supraspinatous X 2, bicep repair X 2, ) - Reproductive History Testicular Surgery: No - Immunization History Immunization Up to Date: Yes - Suicide/Smoking/Psychosocial Hx Smoking Status: No Smoking History: Unknown if ever smoked Have you smoked in the past 12 months: Yes Number of Cigarettes Smoked Daily: 0 Hx Alcohol Use: No (QUIT 2 MONTHS AGO) Drug/Substance Use Hx: No (QUIT 2 MONTHS AGO) Substance Use Type: Alcohol, Prescribed, Tranquilizers Hx Substance Use Treatment: No Review of Systems - Review of Systems Able to Perform ROS?: Yes Comments:: 07/26/17 16:49 GENERAL/CONSTITUTIONAL: No fever or chills. No weakness. HEAD, EYES, EARS, NOSE AND THROAT: No change in vision. No ear pain or discharge. No sore throat. CARDIOVASCULAR: Positive for palpitations. No chest pain or lightheadedness. RESPIRATORY: No cough, wheezing, shortness of breath, or hemoptysis. GASTROINTESTINAL: No nausea, vomiting, diarrhea, constipation, or abdominal pain. GENITOURINARY: No dysuria, frequency, hematuria, or change in urination. MUSCULOSKELETAL: No joint or muscle swelling or pain. No neck or back pain. SKIN: No rash or lesions. NEUROLOGIC: No headache, numbness, tingling, weakness, loss of consciousness, or change in strength/sensation. ENDOCRINE: No increased thirst. No abnormal weight change. HEMATOLOGIC/LYMPHATIC: No anemia, easy bleeding, or history of blood clots. ALLERGIC/IMMUNOLOGIC: No hives or skin allergy. Is the patient limited Thai proficient: No *Physical Exam - Vital Signs Last Vital Signs Temp Pulse Resp BP Pulse Ox 97.9 F 125 H 19 103/82 97 07/26/17 15:16 07/26/17 16:36 07/26/17 16:36 07/26/17 16:36 07/26/17 16:36 - Physical Exam Comments: 07/26/17 16:50 GENERAL: Well developed, well nourished. Awake and alert. No acute distress. HEENT: Normocephalic, atraumatic. Hearing grossly normal. Moist mucous membranes. PERRLA, EOMI. No conjunctival pallor. Sclera are non-icteric. Oropharynx is clear. NECK: Supple. Full ROM. No JVD. CARDIOVASCULAR: Irregular rate with tachycardia. No murmurs, rubs, or gallops. PULMONARY: No evidence of respiratory distress. Lungs clear to auscultation bilaterally. No wheezing, rales or rhonchi. ABDOMINAL: Soft. Non-tender. Non-distended. No rebound or guarding. GENITOURINARY: No CVA tenderness bilaterally. MUSCULOSKELETAL: Normal range of motion at all joints. No bony deformities or tenderness. EXTREMITIES: No cyanosis. No clubbing. No edema. No calf tenderness. SKIN: Warm and dry. Normal capillary refill. No rashes. No jaundice. NEUROLOGICAL: Alert, awake, appropriate. Cranial nerves 2-12 intact. Normal speech. Gait is normal without ataxia. PSYCHIATRIC: Cooperative. Good eye contact. Appropriate mood and affect. Heart Score/ECG Review - History History: Slightly suspicious - Electrocardiogram EKG: Non specific repolarization disturbance - Age Age: 45-65 - Risk Factors Risk Factors Heart Score: Yes Hx Hypertension Based on the list above the patient has:: 1-2 risk factors - Troponin Troponin: </= normal limit - Score Heart Score - Total: 3 #1 ECG reviewed & interpreted by me at: 16:50 General ECG Interpretation: Sinus Rhythm (In a-flutter.), Normal Rate, Normal Intervals, No acute ischemic changes ED Treatment Course - LABORATORY CBC & Chemistry Diagram: 07/26/17 15:45 07/26/17 15:45 - ADDITIONAL ORDERS Additional order review: Laboratory Results 07/26/17 07/26/17 15:45 15:45 PT with INR 12.10 H INR 1.07 Sodium 138 Potassium 4.5 Chloride 104 Carbon Dioxide 25 Anion Gap 9 BUN 12 D Creatinine 1.4 H D Creat Clearance w eGFR 54.09 Random Glucose 110 H Calcium 8.8 Magnesium 1.8 Total Bilirubin 0.4 AST 18 D ALT 49 Alkaline Phosphatase 85 Creatine Kinase 132 Troponin I < 0.02 Total Protein 7.7 Albumin 4.3 07/26/17 15:45 RBC 4.92 MCV 87.2 MCHC 33.8 RDW 13.0 MPV 8.6 Neutrophils % 66.7 Lymphocytes % 22.3 Monocytes % 8.8 Eosinophils % 1.2 Basophils % 1.0 - RADIOLOGY Radiology Studies Ordered: Category Date Time Status CHEST PA & LAT [RAD] Stat Radiology 07/26/17 15:43 Ordered - Medications Given in the ED: ED Medications Discontinued Medications Generic Name Dose Route Start Last Admin Trade Name Freq PRN Reason Stop Dose Admin Famotidine/Sodium Chloride 20 mg in 50 mls @ 100 mls/hr 07/26/17 16:02 16:36 Pepcid 20 Mg Premixed Ivpb - IVPB 07/26/17 16:31 100 mls/hr ONCE ONE Administration Metoprolol Tartrate 5 mg 07/26/17 16:02 07/26/17 16:03 Lopressor Injection - IVPUSH 07/26/17 16:03 5 mg ONCE ONE Administration Metoprolol Tartrate 5 mg 07/26/17 16:32 07/26/17 16:36 Lopressor Injection - IVPUSH 07/26/17 16:33 5 mg ONCE ONE Administration Sodium Chloride 1,000 ml 07/26/17 16:02 07/26/17 16:00 Normal Saline - IV 07/26/17 16:03 1,000 ml ONCE ONE Administration Medical Decision Making - Medical Decision Making 07/26/17 16:55 The patient is a 47M with a PMH of HTN who presents to the ER in [facility]. The patient states that he has had palpitations in the past, but has never felt lightheaded. After 10 of metoprolol, he went into a-flutter. Ordering 5 more. Labs WNL including negative troponin. 07/26/17 17:41 Pt admitted to [facility] for arrhythmia workup. Dr. Robb accepts admission. *DC/Admit/Observation/Transfer Diagnosis at time of Disposition: Arrhythmia Qualifiers: Arrhythmia type: unspecified cardiac arrhythmia Qualified Code(s): I49.9 - Cardiac arrhythmia, unspecified - Discharge Dispostion Condition at time of disposition: Guarded Admit: Yes - Referrals - Patient Instructions - Post Discharge Activity
[2017-07-26] MEDS ORDERED: diazePAM CARPU-JECT 10 MG/2 ML DISP.SYRIN IVPUSH ONE (17:36)
[2017-07-26] MEDS ORDERED: diazePAM 5 MG TABLET ONE (17:42)
[2017-07-26] MEDS ORDERED: diazePAM 5 MG TABLET PO ONE (17:43)
--- NOTE | 2017-07-26 17:56 | HP ---
CHIEF COMPLAINT: lightheadedess, low BP PCP: HISTORY OF PRESENT ILLNESS: The patient is a 47M with a PMH of HTN, anxiety, depression, PTSD who presents to the ER with lightheadedness. The patient states that for the past 5 years, he 's felt his heart race occasionally. Today, he felt a similar sensation as he was laying on his couch. When he got up, he became uncharacteristically lightheaded and decided to come to the ER. He currently states that he feels like he has some heartburt, but denies any current CP, SOB, lightheadedness, nausea, and vomiting. ER course was notable for: (1) EKG : A flutter (2)CBC, CMP (3)Metoprolo 5 mh IV push X 3 Recent Travel:denies PAST MEDICAL HISTORY: HTN, anxiety, depression, PTSD PAST SURGICAL HISTORY: Right shoulder procedure x 3 , rotatoco cuff tear . Social History: Smoking: denies Alcohol: 6-10 beers aday quit 6 months ago Drugs: h/o of abusing benzo , detox was done 6 months ago Family History: Allergies No Known Allergies Allergy (Verified 07/26/17 15:20) HOME MEDICATIONS: Home Medications Medication Instructions Recorded Metoprolol Tartrate [Lopressor -] 50 mg PO DAILY 11/13/16 Duloxetine HCl [Cymbalta] 30 mg PO DAILY 05/03/17 Amlodipine Besylate/Benazepril 2 each PO DAILY 07/26/17 [Lotrel 2.5-10 mg Capsule] Montelukast Sodium [Singulair] 10 mg PO DAILY 07/26/17 Prazosin HCl 5 mg PO HS 07/26/17 Ranitidine HCl [Zantac 75] 75 mg PO DAILY 07/26/17 REVIEW OF SYSTEMS CONSTITUTIONAL: Absent: fever, chills, diaphoresis, generalized weakness, malaise, loss of appetite, weight change HEENT: Absent: rhinorrhea, nasal congestion, throat pain, throat swelling, difficulty swallowing, mouth swelling, ear pain, eye pain, visual changes CARDIOVASCULAR: Absent: chest pain, syncope, palpitations, irregular heart rate, lightheadedness , peripheral edema RESPIRATORY: Absent: cough, shortness of breath, dyspnea with exertion, orthopnea, wheezing, stridor, hemoptysis GASTROINTESTINAL: Absent: abdominal pain, abdominal distension, nausea, vomiting, diarrhea, constipation, melena, hematochezia GENITOURINARY: Absent: dysuria, frequency, urgency, hesitancy, hematuria, flank pain, genital pain MUSCULOSKELETAL: Absent: myalgia, arthralgia, joint swelling, back pain, neck pain SKIN: Absent: rash, itching, pallor HEMATOLOGIC/IMMUNOLOGIC: Absent: easy bleeding, easy bruising, lymphadenopathy, frequent infections ENDOCRINE: Absent: unexplained weight gain, unexplained weight loss, heat intolerance, cold intolerance NEUROLOGIC: Absent: headache, focal weakness or paresthesias, dizziness, unsteady gait, seizure, mental status changes, bladder or bowel incontinence PSYCHIATRIC: Absent: anxiety, depression, suicidal or homicidal ideation, hallucinations. PHYSICAL EXAMINATION Vital Signs - 24 hr 07/26/17 07/26/17 07/26/17 15:16 16:03 16:11 Temperature 97.9 F Pulse Rate 141 H Pulse Rate [ Apical] Respiratory 20 Rate Blood Pressure 137/109 110/60 Blood Pressure [Right Arm] O2 Sat by Pulse 100 97 Oximetry (%) 07/26/17 07/26/17 07/26/17 16:36 16:45 17:07 Temperature Pulse Rate Pulse Rate [ 125 H 120 H Apical] Respiratory 19 18 Rate Blood Pressure 103/82 110/60 Blood Pressure 103/82 106/90 [Right Arm] O2 Sat by Pulse 97 97 Oximetry (%) GENERAL: Awake, alert, and fully oriented, in no acute distress. HEAD: Normal with no signs of trauma. EYES: Pupils equal, round and reactive to light, extraocular movements intact, sclera anicteric, conjunctiva clear. EARS, NOSE, THROAT: Ears normal, nares patent, oropharynx clear without exudates. Moist mucous membranes. NECK: Normal range of motion, supple without lymphadenopathy, JVD, LUNGS: Breath sounds equal, clear to auscultation bilaterally. No wheezes, and no crackles. No accessory muscle use. HEART: IRRegularly irregular , normal S1 and S2 without murmur, rub or gallop. ABDOMEN: Soft, nontender, not distended, normoactive bowel sounds, no guarding, no rebound, no masses. MUSCULOSKELETAL: Normal range of motion at all joints. No bony deformities or tenderness. No CVA tenderness. UPPER EXTREMITIES: 2+ pulses, warm, well-perfused. No cyanosis. No clubbing. No peripheral edema. LOWER EXTREMITIES: 2+ pulses, warm, well-perfused. No calf tenderness. No peripheral edema. NEUROLOGICAL: Cranial nerves II-XII intact. Normal speech.strength 5/5 in upper and lower ext proximally and distally. sensation to light touch is nL. reflexes 1+ knee jerk b/l , 2+ biceps b/l . PSYCHIATRIC: Cooperative. Good eye contact. Appropriate mood and affect. SKIN: Warm, dry, normal turgor, no rashes or lesions noted, normal capillary refill. Laboratory Results - last 24 hr 07/26/17 07/26/17 07/26/17 15:45 15:45 15:45 WBC 11.4 H RBC 4.92 Hgb 14.5 Hct 42.9 MCV 87.2 MCH 29.5 MCHC 33.8 RDW 13.0 Plt Count 297 D MPV 8.6 Neutrophils % 66.7 Lymphocytes % 22.3 Monocytes % 8.8 Eosinophils % 1.2 Basophils % 1.0 PT with INR 12.10 H INR 1.07 Sodium 138 Potassium 4.5 Chloride 104 Carbon Dioxide 25 Anion Gap 9 BUN 12 D Creatinine 1.4 H D Creat Clearance w eGFR 54.09 Random Glucose 110 H Calcium 8.8 Magnesium 1.8 Total Bilirubin 0.4 AST 18 D ALT 49 Alkaline Phosphatase 85 Creatine Kinase 132 Troponin I < 0.02 Total Protein 7.7 Albumin 4.3 TSH 07/26/17 17:07 WBC RBC Hgb Hct MCV MCH MCHC RDW Plt Count MPV Neutrophils % Lymphocytes % Monocytes % Eosinophils % Basophils % PT with INR INR Sodium Potassium Chloride Carbon Dioxide Anion Gap BUN Creatinine Creat Clearance w eGFR Random Glucose Calcium Magnesium Total Bilirubin AST ALT Alkaline Phosphatase Creatine Kinase Troponin I Total Protein Albumin TSH 1.91 CBC, BMP 07/26/17 15:45 07/26/17 15:45 EKG A flutter 2:1 with rate 125-140 CXR : negative for acute process ASSESSMENT/PLAN: 47 y/o man with h/o HTN, HLP, PTSD, panic attacks, depression and anxiety who presented with palpitation and light headedness. he was found to have a flutter which converted to A fib with RVR . # A- Flutter alternate with Afib w ith RVR * EKG * CXR * Echo * Cardiology consult * Metoprolol 5 mg IV push x3 with no responce start him on deltiazim 5 mg IV push with 30 mg po Q 6 hr , responde well * cardiac cath rn * AC : Chads2 vasc score is 1 with risk of stroke of 0.6 % per year : discussed his options of coumadin VS Noacs vs Lovenox were d/w with side effects of bleeding ( sever to life threatening at times ). 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 ( and is aware of risk of spinal bleed) will start heparin gtt now , and then after echo is obtained and valvular problems are r/o will start eliquis # LAUREN liekly pre renal 2/2 Aflutter vs volum depletion * Given 1 L nS in ED * avoid more fluids for now as pt still in Afib * after rate control consider more fluids to improve BUN/Vr # HTN * hold home meds due to arrhythmia will resume when rate are controlled , Metoprolo 50 mg po daily ,Amlodipin/penzepril (2.5-10 ) 2 tab daily * Monitor # Anxiety /PTSD * continue home meds #FEN * F: NS 1L bolus in ED , * E: Monitor * N : low sodium diet # Proph * SCDS , hep GTT * GI : N need # Dispo * Admit to inpatient tele Visit type - Emergency Visit Emergency Visit: Yes ED Registration Date: 07/26/17 Care time: The patient presented to the Emergency Department on the above date and was hospitalized for further evaluation of their emergent condition. - New Patient This patient is new to me today: Yes Date on this admission: 07/27/17 - Critical Care Critical Care patient: No
[2017-07-26] MEDS ORDERED: dilTIAZem HCL 50 MG/10 ML - 10 ML VIAL IVPUSH ONE ×2 (19:00→20:59)
[2017-07-26] MEDS ORDERED: dilTIAZem HCL 30 MG TABLET (FP) ONE (19:35)
[2017-07-26] MEDS ORDERED: dilTIAZem HCL 125 MG/25 ML - 25 ML VIAL ONE (19:36)
[2017-07-26] MEDS: dilTIAZem HCL 30 MG TABLET (FP) PO SCH (20:01)
[2017-07-26] MEDS ORDERED: HEPARIN NA (PORCINE) 5,000 UNITS/ML 1ML VIAL IVPUSH PRN (20:08)
--- NOTE | 2017-07-26 20:09 | PN ---
Teaching Attending Note Name of Resident: Louis Garcia ATTENDING PHYSICIAN STATEMENT I saw and evaluated the patient. I reviewed the resident's note and discussed the case with the resident. I agree with the resident's findings and plan as documented. SUBJECTIVE: CC: palpitation and light headedness. HPI: 47 y/o man with h/o HTN, HLP, PTSD, panic attacks, depression and anxiety who presented with palpitation and light headedness. He started to have those sx this am , and continued throughout the day with no resolution. he experienced paginations few times in past few years. He came to ER and was found to have A fluter, was given BB which id not control the rate but he converted to a fib . BP dropped and received 1 L bolus of NS at this time , he is in ER, has palpitations, No SOB, no CP, no dyuria . has chronic cough from post nasal drip , no fever or chills . has no diarrhea or heat intolerance OBJECTIVE: HR in 100-145 on tele , A fib alternating with Aflutter . SBP 95-136 NAD, MMM, symmetric face Cv: irreg irreg. no MRG , no JVD Lungs: CTAB Abd: soft, NT, ND , NL BS , no hepato-jugular reflux Ext: no edema , no fungal infection in feet Neuro: EOMI, round equal pupils, reactive to light. no facial droop, tongue and uvula at mid line. strength 5/5 in upper and lower ext proximally and distally. sensation to light touch is nL. reflexes 1+ knee jerk b/l , 2+ biceps b/l . EKG and cxray reviewed. HLOC ASSESSMENT AND PLAN: 47 y/o man with h/o HTN, HLP, PTSD, panic attacks, depression and anxiety who presented with palpitation and light headedness. he was found to have a flutter which converted to A fib with RVR . 1- Aflutter ---> a fib: stil in RVR , no rate control after 3 doses of BB. does not have any signs of heart failure. he has no signs of infection , no murmurs, TSH is nL . - give IV cardizem 5 mg , then repeat , if no response and BP is still NL, will start cardizem gtt - if still RVR and BP is < 100 , will load with digoxin over night . - check Echo - CHADSVASC score 1 . I discussed with him the risk for stroke 0.6 % per year. and gave option for ASA vs full AC. He chose full AC. his options of coumadin VS Noacs vs Lovenox were d/w with side effects of bleeding ( sever to life threatening at times ). 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 not in heart failure - received 1 L of fluids in Er. - avoid more fluids now as he is still in RVR - tomorrow if cr is still elevated , might try more IVF 3- H/o HTN: hold his home meds to give room for rate control 4- PTSD, panic, depression : cont home meds
[2017-07-26] MEDS ORDERED: HEPARIN NA (PORCINE) 5,000 UNITS/ML 1ML VIAL IVPUSH ONE (20:11)
[2017-07-26] MEDS ORDERED: HEPARIN NA (PORCINE) 5,000 UNITS/ML 1ML VIAL ONE (20:44)
[2017-07-26] MEDS ORDERED: HEPARIN INFUSION - 25,000 UNITS/500 ML INFUS.BAG IVPB ONE (21:27)
[2017-07-26] MEDS: HEPARIN - 25,000 UNIT in SODIUM CHLORIDE 495 ML IV SCH (21:30)
[2017-07-26] MEDS ORDERED: PRAZOSIN HCL 5 MG CAPSULE PO SCH (22:00)
[2017-07-26] MEDS ORDERED: dilTIAZem HCL 30 MG TABLET (FP) PO SCH (22:00)
[2017-07-26] MEDS ORDERED: hydrALAZINE HCL 25 MG TABLET (FP) ONE (22:39)
[2017-07-26] MEDS: hydrALAZINE HCL 25 MG TABLET (FP) PO SCH (22:42)
[2017-07-26] MEDS: traZODone HCL 50 MG TABLET (FP) PO SCH (23:15)
[2017-07-26] MEDS: ATORVASTATIN CA 20 MG TABLET (FP) PO SCH (23:16)
[2017-07-27] MEDS ORDERED: dilTIAZem HCL 30 MG TABLET (FP) ONE ×2 (00:16→06:20)
[2017-07-27] MEDS: dilTIAZem HCL 30 MG TABLET (FP) PO SCH ×2 (00:20→06:33)
[2017-07-27 04:24] LABS: INR 1.13 (0.82-1.09); PROTHROMBIN TIME (PATIENT) 12.8 SEC (9.98-11.88)
[2017-07-27] MEDS ORDERED: HEPARIN NA (PORCINE) 5,000 UNITS/ML 1ML VIAL ONE (04:49)
[2017-07-27] MEDS: HEPARIN NA (PORCINE) 5,000 UNITS/ML 1ML VIAL IVPUSH PRN (05:00)
[2017-07-27] MEDS ORDERED: hydrALAZINE HCL 25 MG TABLET (FP) ONE (06:20)
[2017-07-27] MEDS: hydrALAZINE HCL 25 MG TABLET (FP) PO SCH ×3 (06:33→21:35)
[2017-07-27 06:57] LABS: BASO % 0.7 % (0-2.0); EOS % 1.7 % (0-4.5); HEMATOCRIT 45.4 % (35.4-49); HEMOGLOBIN 14.9 GM/dL (11.7-16.9); LYMPH % 41.3 % (8-40); MCH 28.4 pg (25.7-33.7); MCHC 32.9 g/dl (32.0-35.9); MEAN CELL VOLUME 86.5 fl (80-96); MONO % 7.8 % (3.8-10.2); NEUT % 48.5 % (42.8-82.8); PLATELET COUNT 301 K/MM3 (134-434); RBC 5.25 M/mm3 (4.00-5.60); RDW 12.9 % (11.9-15.9); WHITE BLOOD COUNT 14.3 K/mm3 (4.0-10.0)
[2017-07-27 07:15] LABS: INR 1.13 (0.82-1.09); PROTHROMBIN TIME (PATIENT) 12.8 SEC (9.98-11.88)
[2017-07-27] MEDS ORDERED: dilTIAZem HCL 50 MG/10 ML - 10 ML VIAL IVPUSH ONE ×2 (07:17→17:54)
[2017-07-27 07:24] LABS: ACTIVATED PTT 102.3 SECONDS (26.9-34.4)
[2017-07-27 07:27] LABS: ANION GAP 7 (8-16); BLOOD UREA NITROGEN 11 mg/dL (7-18); CALCIUM 8.6 mg/dL (8.5-10.1); CHLORIDE 106 mmol/L (98-107); CHOLESTEROL 133 mg/dL (50-200); CO2 26 mmol/L (21-32); CREATININE 1.2 mg/dL (0.7-1.3); GLUCOSE,RANDOM 167 mg/dL (74-106); POTASSIUM 4.1 mmol/L (3.5-5.1); SGOT/AST 17 U/L (15-37); SGPT/ALT 44 U/L (12-78); SODIUM 139 mmol/L (136-145)
[2017-07-27 07:29] LABS: ALK PHOS 77 U/L (45-117); BILIRUBIN,TOTAL 0.7 mg/dL (0.2-1.0); HDL CHOLESTEROL 50 mg/dL (40-60); LDL CHOLESTEROL (ONLY SJRH) 68 mg/dL (5-100); N-TERMINAL BNP 1113.99 pg/ml (5-125); TOT PROT 7.2 g/dl (6.4-8.2); TRIGLYCERIDES 82 mg/dL (35-160)
[2017-07-27] MEDS ORDERED: DILTIAZEM INJECTION 125 MG in DEXTROSE 5%-WATER - 100 ML IVPB SCH ×2 (08:30→18:00)
--- NOTE | 2017-07-27 08:40 | EKG ---
Test Reason : Blood Pressure : / mmHG Vent. Rate : 130 BPM Atrial Rate : 312 BPM P-R Int : 000 ms QRS Dur : 084 ms QT Int : 348 ms P-R-T Axes : 000 008 062 degrees QTc Int : 512 ms ATRIAL FLUTTER WITH VARIABLE A-V BLOCK MINIMAL VOLTAGE CRITERIA FOR LVH, MAY BE NORMAL VARIANT ST ELEVATION, CONSIDER EARLY REPOLARIZATION, PERICARDITIS, OR INJURY NONSPECIFIC T WAVE ABNORMALITY ABNORMAL ECG WHEN COMPARED WITH ECG OF 26-JUL-2017 15:32, ST ELEVATION HAS REPLACED ST DEPRESSION IN INFERIOR LEADS ST ELEVATION HAS REPLACED ST DEPRESSION IN ANTEROLATERAL LEADS T WAVE INVERSION NO LONGER EVIDENT IN INFERIOR LEADS T WAVE INVERSION NO LONGER EVIDENT IN ANTERIOR LEADS Confirmed by LACEY BOYD, DIONISIO ([id number]) on 07/27/2017 8:40:25 AM Referred By: Confirmed By:DIONISIO RAHMAN MD
[2017-07-27] MEDS ORDERED: DIGOXIN 0.5 MG/2 ML AMPUL IVPUSH ONE ×3 (08:42→21:00)
--- NOTE | 2017-07-27 08:54 | PN ---
Progress Note (short form) - Note Progress Note: Subjective: no fever or chills, still has palpitations, has no CP or SOB . Objective: Vital Signs: Last Vital Signs Temp Pulse Resp BP Pulse Ox 97.9 F 130 H 18 111/75 100 07/26/17 15:16 07/27/17 07:36 07/27/17 07:36 07/27/17 07:36 07/27/17 07:36 Laboratory Results - last 24 hr 07/26/17 07/26/17 07/26/17 15:45 15:45 15:45 WBC 11.4 H RBC 4.92 Hgb 14.5 Hct 42.9 MCV 87.2 MCH 29.5 MCHC 33.8 RDW 13.0 Plt Count 297 D MPV 8.6 Neutrophils % 66.7 Lymphocytes % 22.3 Monocytes % 8.8 Eosinophils % 1.2 Basophils % 1.0 PT with INR 12.10 H INR 1.07 PTT (Actin FS) Sodium 138 Potassium 4.5 Chloride 104 Carbon Dioxide 25 Anion Gap 9 BUN 12 D Creatinine 1.4 H D Creat Clearance w eGFR 54.09 Random Glucose 110 H Hemoglobin A1c % Calcium 8.8 Magnesium 1.8 Total Bilirubin 0.4 AST 18 D ALT 49 Alkaline Phosphatase 85 Creatine Kinase 132 Troponin I < 0.02 B-Natriuretic Peptide Total Protein 7.7 Albumin 4.3 Triglycerides Cholesterol Total LDL Cholesterol HDL Cholesterol TSH 07/26/17 07/27/17 07/27/17 17:07 03:51 03:53 WBC RBC Hgb Hct MCV MCH MCHC RDW Plt Count MPV Neutrophils % Lymphocytes % Monocytes % Eosinophils % Basophils % PT with INR 12.80 H INR 1.13 PTT (Actin FS) 38.6 H Sodium Potassium Chloride Carbon Dioxide Anion Gap BUN Creatinine Creat Clearance w eGFR Random Glucose Hemoglobin A1c % Calcium Magnesium Total Bilirubin AST ALT Alkaline Phosphatase Creatine Kinase Troponin I B-Natriuretic Peptide Total Protein Albumin Triglycerides Cholesterol Total LDL Cholesterol HDL Cholesterol TSH 1.91 07/27/17 07/27/17 07/27/17 06:37 06:37 06:37 WBC 14.3 H RBC 5.25 Hgb 14.9 Hct 45.4 MCV 86.5 MCH 28.4 MCHC 32.9 RDW 12.9 Plt Count 301 MPV 9.0 Neutrophils % 48.5 D Lymphocytes % 41.3 H D Monocytes % 7.8 Eosinophils % 1.7 Basophils % 0.7 PT with INR 12.80 H INR 1.13 PTT (Actin FS) 102.3 H D Sodium 139 Potassium 4.1 Chloride 106 Carbon Dioxide 26 Anion Gap 7 L BUN 11 Creatinine 1.2 Creat Clearance w eGFR > 60 Random Glucose 167 H D Hemoglobin A1c % Calcium 8.6 Magnesium Total Bilirubin 0.7 D AST 17 ALT 44 Alkaline Phosphatase 77 Creatine Kinase 87 Troponin I < 0.02 B-Natriuretic Peptide 1113.99 H Total Protein 7.2 Albumin 4.0 Triglycerides 82 Cholesterol 133 Total LDL Cholesterol 68 HDL Cholesterol 50 TSH 07/27/17 06:37 WBC RBC Hgb Hct MCV MCH MCHC RDW Plt Count MPV Neutrophils % Lymphocytes % Monocytes % Eosinophils % Basophils % PT with INR INR PTT (Actin FS) Sodium Potassium Chloride Carbon Dioxide Anion Gap BUN Creatinine Creat Clearance w eGFR Random Glucose Hemoglobin A1c % 6.1 H Calcium Magnesium Total Bilirubin AST ALT Alkaline Phosphatase Creatine Kinase Troponin I B-Natriuretic Peptide Total Protein Albumin Triglycerides Cholesterol Total LDL Cholesterol HDL Cholesterol TSH Physical Exam: HR in 160s on tele , BP 95/50 NAD, MMM, symmetric face Cv: irreg irreg. no MRG , no JVD Lungs: CTAB Ext: no edema ASSESSMENT AND PLAN: 47 y/o man with h/o HTN, HLP, PTSD, panic attacks, depression and anxiety who presented with palpitation and light headedness. he was found to have a flutter which converted to A fib with RVR . 1- Aflutter /a fib: rhythm is alternating between A flutter and A fib. Now in a flutter @ 160s IV BB and IV cardizem pushes did not help last night . Now BP is 95/50. still no signs of heart failure - start dig load with 0.5 mg now then 0.25 mg x 2 after that - cont PO cardizem 30 Q 6H , monitor BP - can't use cardizem gtt as BP is low - Echo pending - CHADSVASC score 1 . I discussed with him the risk for stroke 0.6 % per year. and gave option for ASA vs full AC. He chose full AC. his options of coumadin VS Noacs vs Lovenox were d/w with side effects of bleeding ( severe to life threatening at times ). 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 not in heart failure - received 1 L of fluids in Er. - avoid more fluids now as he is still in RVR . looks euvolemic 3- H/o HTN: hold his home meds to give room for rate control 4- PTSD, panic, depression : cont home meds HLOC Visit type - Emergency Visit Emergency Visit: Yes ED Registration Date: 07/26/17 Care time: The patient presented to the Emergency Department on the above date and was hospitalized for further evaluation of their emergent condition. - New Patient This patient is new to me today: No - Critical Care Critical Care patient: No
[2017-07-27] MEDS: MONTELUKAST NA 10 MG TABLET PO SCH (10:04)
[2017-07-27] MEDS: DULoxetine HCL 30 MG CAPSULE.DR (FP) PO SCH (10:04)
[2017-07-27] MEDS: RANITIDINE HCL 150 MG TABLET (FP) PO SCH (10:04)
[2017-07-27] MEDS ORDERED: dilTIAZem HCL 30 MG TABLET (FP) PO SCH (12:00)
--- NOTE | 2017-07-27 12:09 | CON.CARD ---
Consult Consult Specialty:: Cardiology Referred by:: Hospitalist Medicine Reason for Consultation:: Rapid atrial flutter - History of Present Illness Chief Complaint: Palpitations and dyspnea History of Present Illness: CC: palpitation and light headedness. HPI: 47 y/o man with h/o HTN, HLP, PTSD, panic attacks, depression and anxiety who presented with palpitation, dyspnea and light-headedness without true syncope or chest tightness starting 07/26/2017 AM. He was found to have rapid atrial flutter achieved rate-control and started on heparin gtt with resolution of symptoms. - History Source History Provided By: Patient Limitations to Obtaining History: No Limitations - Past Medical History Cardio/Vascular: Yes: AFIB - Alcohol/Substance Use Hx Alcohol Use: No (QUIT 2 MONTHS AGO) - Smoking History Smoking history: Unknown if ever smoked Have you smoked in the past 12 months: Yes Aproximately how many cigarettes per day: 0 Home Medications - Allergies Allergies/Adverse Reactions: Allergies Allergy/AdvReac Type Severity Reaction Status Date / Time No Known Allergies Allergy Verified 07/26/17 15:20 - Home Medications Home Medications: Ambulatory Orders Metoprolol Tartrate [Lopressor -] 50 mg PO DAILY 11/13/16 Duloxetine HCl [Cymbalta] 30 mg PO DAILY 05/03/17 Amlodipine Besylate/Benazepril [Lotrel 2.5-10 mg Capsule] 2 each PO DAILY Montelukast Sodium [Singulair] 10 mg PO DAILY 07/26/17 Prazosin HCl 5 mg PO HS 07/26/17 Ranitidine HCl [Zantac 75] 75 mg PO DAILY 07/26/17 Review of Systems - Review of Systems Cardiovascular: reports: Palpitations, Shortness of Breath Neurological: reports: Dizziness Vital Signs: Vital Signs Temperature 98 F 07/27/17 11:47 Pulse Rate 100 H 07/27/17 11:47 Respiratory Rate 17 07/27/17 11:47 Blood Pressure 112/75 07/27/17 11:47 O2 Sat by Pulse Oximetry (%) 99 07/27/17 11:47 Constitutional: Yes: No Distress, Calm Neck: Yes: Supple Respiratory: Yes: Regular, CTA Bilaterally Gastrointestinal: Yes: Normal Bowel Sounds, Soft Cardiovascular: Yes: Tachycardia, Pulse Irregular JVD: No Carotid Bruit: No Heart Sounds: Yes: S1, S2 Murmur: Yes: Systolic Murmur, Grade 1 Edema: No - Other Data Labs, Other Data: CBC, BMP 07/27/17 06:37 07/27/17 06:37 INR, PTT INR 1.13 (0.82-1.09) 07/27/17 06:37 Troponin, BNP 07/26/17 07/27/17 15:45 06:37 Troponin I < 0.02 < 0.02 B-Natriuretic Peptide 1113.99 H Troponin, BNP 07/26/17 07/27/17 15:45 06:37 Troponin I < 0.02 < 0.02 B-Natriuretic Peptide 1113.99 H Aflutter @ 150 2:1 AV block Echo: Pending Problem List - Problems (1) Paroxysmal atrial flutter Code(s): I48.92 - UNSPECIFIED ATRIAL FLUTTER (2) Palpitations Code(s): R00.2 - PALPITATIONS (3) Essential hypertension Code(s): I10 - ESSENTIAL (PRIMARY) HYPERTENSION (4) Hypercholesterolemia Code(s): E78.00 - PURE HYPERCHOLESTEROLEMIA, UNSPECIFIED Assessment/Plan 1. Paroxysmal atrial flutter with RVR [id number] 2. HTN 3. Hyperlipidemia 4. PTSD, panic attacks, depression and anxiety P:1. Rate control with Lopressor uptitrate as tolerated, IV digoxin given. 2. F/u echo results 3. Heparin->Eliquis 4. Keep NPO for possible DCCV although patient hesitant rhythm control, may consider EP study RFA aflutter as outpatient. No KHRIS-guidance indicated as based on sxs, anticoagulation started within 48 hrs of aflutter onset 5. Thank you for consultative opportunity
[2017-07-27] MEDS: METOPROLOL TARTRATE 25 MG TABLET (FP) PO SCH ×2 (12:38→21:36)
[2017-07-27] MEDS ORDERED: DIGOXIN 0.5 MG/2 ML AMPUL ONE (15:38)
--- NOTE | 2017-07-27 16:50 | EKG ---
Test Reason : Blood Pressure : / mmHG Vent. Rate : 164 BPM Atrial Rate : 328 BPM P-R Int : 000 ms QRS Dur : 082 ms QT Int : 250 ms P-R-T Axes : 243 014 206 degrees QTc Int : 412 ms ATRIAL FLUTTER WITH 2:1 A-V CONDUCTION MARKED ST ABNORMALITY, POSSIBLE INFEROLATERAL SUBENDOCARDIAL INJURY ABNORMAL ECG WHEN COMPARED WITH ECG OF 27-JUL-2017 00:23, ST NOW DEPRESSED IN INFERIOR LEADS ST NOW DEPRESSED IN ANTEROLATERAL LEADS NONSPECIFIC T WAVE ABNORMALITY NOW EVIDENT IN INFERIOR LEADS INVERTED T WAVES HAVE REPLACED NONSPECIFIC T WAVE ABNORMALITY IN LATERAL LEADS Confirmed by LACEY BOYD, DIONISIO ([id number]) on 07/27/2017 4:49:28 PM Referred By: Confirmed By:DIONISIO RAHMAN MD
[2017-07-27] MEDS ORDERED: dilTIAZem HCL 50 MG/10 ML - 10 ML VIAL IVPUSH PRN (17:48)
[2017-07-27] MEDS ORDERED: traZODone HCL 50 MG TABLET (FP) PO ONE (20:52)
[2017-07-27] MEDS: traZODone HCL 50 MG TABLET (FP) PO SCH (21:36)
[2017-07-27] MEDS: ATORVASTATIN CA 20 MG TABLET (FP) PO SCH (21:36)
[2017-07-27] MEDS: HEPARIN - 25,000 UNIT in SODIUM CHLORIDE 495 ML IV SCH (23:09)
[2017-07-28] MEDS: HEPARIN NA (PORCINE) 5,000 UNITS/ML 1ML VIAL IVPUSH PRN (01:45)
--- NOTE | 2017-07-28 05:52 | PN ---
Physical Exam: SUBJECTIVE: Patient seen and examined OBJECTIVE: Vital Signs Period Temp Pulse Resp BP Sys/Garcia Pulse Ox Last 24 Hr 97.3 F-98.8 F 75-164 13-22 95-141/58-97 97-100 GENERAL: The patient is awake, alert, and fully oriented, in no acute distress. HEAD: Normal with no signs of trauma. EYES: PERRL, extraocular movements intact, sclera anicteric, conjunctiva clear. No ptosis. ENT: Ears normal, nares patent, oropharynx clear without exudates, moist mucous membranes. NECK: Trachea midline, full range of motion, supple. LUNGS: Breath sounds equal, clear to auscultation bilaterally, no wheezes, no crackles, no accessory muscle use. HEART: Regular rate and rhythm, S1, S2 without murmur, rub or gallop. ABDOMEN: Soft, nontender, nondistended, normoactive bowel sounds, no guarding, no rebound, no hepatosplenomegaly, no masses. EXTREMITIES: 2+ pulses, warm, well-perfused, no edema. NEUROLOGICAL: Cranial nerves II through XII grossly intact. Normal speech, gait not observed. PSYCH: Normal mood, normal affect. SKIN: Warm, dry, normal turgor, no rashes or lesions noted Laboratory Results - last 24 hr 07/27/17 07/27/17 07/27/17 06:37 06:37 06:37 WBC 14.3 H RBC 5.25 Hgb 14.9 Hct 45.4 MCV 86.5 MCH 28.4 MCHC 32.9 RDW 12.9 Plt Count 301 MPV 9.0 Neutrophils % 48.5 D Lymphocytes % 41.3 H D Monocytes % 7.8 Eosinophils % 1.7 Basophils % 0.7 PT with INR 12.80 H INR 1.13 PTT (Actin FS) 102.3 H D Sodium 139 Potassium 4.1 Chloride 106 Carbon Dioxide 26 Anion Gap 7 L BUN 11 Creatinine 1.2 Creat Clearance w eGFR > 60 Random Glucose 167 H D Hemoglobin A1c % Calcium 8.6 Total Bilirubin 0.7 D AST 17 ALT 44 Alkaline Phosphatase 77 Creatine Kinase 87 Troponin I < 0.02 B-Natriuretic Peptide 1113.99 H Total Protein 7.2 Albumin 4.0 Triglycerides 82 Cholesterol 133 Total LDL Cholesterol 68 HDL Cholesterol 50 07/27/17 07/27/17 07/27/17 06:37 12:00 18:00 WBC RBC Hgb Hct MCV MCH MCHC RDW Plt Count MPV Neutrophils % Lymphocytes % Monocytes % Eosinophils % Basophils % PT with INR INR PTT (Actin FS) 38.6 H D 40.9 H Sodium Potassium Chloride Carbon Dioxide Anion Gap BUN Creatinine Creat Clearance w eGFR Random Glucose Hemoglobin A1c % 6.1 H Calcium Total Bilirubin AST ALT Alkaline Phosphatase Creatine Kinase Troponin I B-Natriuretic Peptide Total Protein Albumin Triglycerides Cholesterol Total LDL Cholesterol HDL Cholesterol 07/28/17 01:00 WBC RBC Hgb Hct MCV MCH MCHC RDW Plt Count MPV Neutrophils % Lymphocytes % Monocytes % Eosinophils % Basophils % PT with INR INR PTT (Actin FS) 36.5 H Sodium Potassium Chloride Carbon Dioxide Anion Gap BUN Creatinine Creat Clearance w eGFR Random Glucose Hemoglobin A1c % Calcium Total Bilirubin AST ALT Alkaline Phosphatase Creatine Kinase Troponin I B-Natriuretic Peptide Total Protein Albumin Triglycerides Cholesterol Total LDL Cholesterol HDL Cholesterol Active Medications Generic Name Dose Route Start Last Admin Trade Name Freq PRN Reason Stop Dose Admin Atorvastatin Calcium 20 mg 07/26/17 22:00 07/27/17 21:36 Lipitor - PO 20 mg HS LYDIA Administration Duloxetine HCl 30 mg 07/27/17 10:00 07/27/17 10:04 Cymbalta - PO 30 mg DAILY LYDIA Administration Heparin Sodium (Porcine) 1,000 unit 07/26/17 20:08 07/27/17 19:00 Heparin - IVPUSH 1,000 unit PRN PRN Administration Heparin Heparin Sodium (Porcine) 5,000 unit 07/26/17 20:08 07/28/17 01:45 Heparin - IVPUSH 5,000 unit PRN PRN Administration Heparin Hydralazine HCl 50 mg 07/26/17 22:00 07/27/17 21:35 Apresoline - PO 50 mg TID LYDIA Administration Heparin Sodium (Porcine) 25, 500 mls @ 20 mls/hr 07/26/17 20:15 07/28/17 01: 44 000 unit/ Sodium Chloride IV 1,400 unit/hr TITR LYDIA 28 mls/hr Protocol Titration 1,000 UNIT/HR Diltiazem HCl 125 mg/ Dextrose 125 mls @ 5 mls/hr 07/27/17 18:00 07/27/17 20: 01 IVPB 5 mg/hr TITR LYDIA 5 mls/hr Protocol Administration 5 MG/HR Metoprolol Tartrate 25 mg 07/27/17 12:30 07/27/17 21:36 Lopressor - PO 25 mg BID LYDIA Administration Montelukast Sodium 10 mg 07/27/17 10:00 07/27/17 10:04 Singulair - PO 10 mg DAILY LYDIA Administration Ranitidine HCl 75 mg 07/27/17 10:00 07/27/17 10:04 Zantac - PO 75 mg DAILY LYDIA Administration Trazodone HCl 150 mg 07/26/17 22:00 07/27/17 21:36 Desyrel - PO Not Given HS [facility] ASSESSMENT/PLAN:
[2017-07-28] MEDS: hydrALAZINE HCL 25 MG TABLET (FP) PO SCH (06:20)
[2017-07-28 07:16] LABS: HEMATOCRIT 47.5 % (35.4-49); HEMOGLOBIN 15.4 GM/dL (11.7-16.9); MCH 28.5 pg (25.7-33.7); MCHC 32.5 g/dl (32.0-35.9); MEAN CELL VOLUME 87.9 fl (80-96); PLATELET COUNT 330 K/MM3 (134-434); RDW 13.3 % (11.9-15.9); WHITE BLOOD COUNT 13.8 K/mm3 (4.0-10.0)
[2017-07-28 07:29] LABS: CALCIUM 9.4 mg/dL (8.5-10.1); CHLORIDE 106 mmol/L (98-107); POTASSIUM 4.4 mmol/L (3.5-5.1); SODIUM 139 mmol/L (136-145)
[2017-07-28 07:34] LABS: ANION GAP 9 (8-16); BLOOD UREA NITROGEN 12 mg/dL (7-18); CO2 24 mmol/L (21-32); GLUCOSE,RANDOM 136 mg/dL (74-106)
[2017-07-28] MEDS: MONTELUKAST NA 10 MG TABLET PO SCH ×3 (09:20→12:40)
[2017-07-28] MEDS: METOPROLOL TARTRATE 25 MG TABLET (FP) PO SCH ×2 (09:20→10:44)
[2017-07-28] MEDS: DULoxetine HCL 30 MG CAPSULE.DR (FP) PO SCH ×3 (09:20→12:40)
[2017-07-28] MEDS: RANITIDINE HCL 150 MG TABLET (FP) PO SCH ×3 (09:21→12:40)
[2017-07-28] MEDS ORDERED: PROPOFOL 20 ML ONE ×2 (10:15)
--- NOTE | 2017-07-28 10:18 | PN ---
Progress Note, Physician Chief Complaint: Events noted Remains in atrial flutter History of Present Illness: Patient was seen and examined. Awake and alert. Chart was reviewed Denies chest pain, SOB. periods of palpitation. Remains in atrial flutter For synchronized cardioversion - Current Medication List Current Medications: Active Medications Atorvastatin Calcium (Lipitor -) 20 mg PO HS [facility] Last Admin: 07/27/17 21:36 Dose: 20 mg Duloxetine HCl (Cymbalta -) 30 mg PO DAILY [facility] Last Admin: 07/27/17 10:04 Dose: 30 mg Heparin Sodium (Porcine) (Heparin -) 1,000 unit IVPUSH PRN PRN PRN Reason: Heparin Last Admin: 07/27/17 19:00 Dose: 1,000 unit Heparin Sodium (Porcine) (Heparin -) 5,000 unit IVPUSH PRN PRN PRN Reason: Heparin Last Admin: 07/28/17 01:45 Dose: 5,000 unit Hydralazine HCl (Apresoline -) 50 mg PO TID [facility] Last Admin: 07/28/17 06:20 Dose: Not Given Heparin Sodium (Porcine) 25, (000 unit/ Sodium Chloride) 500 mls @ 20 mls/hr IV TITR LYDIA; 1,000 UNIT/HR PRN Reason: Protocol Last Titration: 07/28/17 01:44 Dose: 1,400 unit/hr, 28 mls/hr Diltiazem HCl 125 mg/ Dextrose 125 mls @ 5 mls/hr IVPB TITR LYDIA; 5 MG/HR PRN Reason: Protocol Last Admin: 07/27/17 20:01 Dose: 5 mg/hr, 5 mls/hr Metoprolol Tartrate (Lopressor -) 25 mg PO BID [facility] Last Admin: 07/27/17 21:36 Dose: 25 mg Montelukast Sodium (Singulair -) 10 mg PO DAILY [facility] Last Admin: 07/27/17 10:04 Dose: 10 mg Ranitidine HCl (Zantac -) 75 mg PO DAILY [facility] Last Admin: 07/27/17 10:04 Dose: 75 mg Trazodone HCl (Desyrel -) 150 mg PO HS [facility] Last Admin: 07/27/17 21:36 Dose: Not Given - Objective Vital Signs: Vital Signs Temperature 97.3 F L 07/28/17 06:00 Pulse Rate 84 07/28/17 06:00 Respiratory Rate 20 07/28/17 06:00 Blood Pressure 111/75 07/28/17 06:00 O2 Sat by Pulse Oximetry (%) 96 07/28/17 08:37 Constitutional: Yes: Well Nourished Eyes: Yes: Conjunctiva Clear, PERRL HENT: Yes: Atraumatic Neck: Yes: Supple Cardiovascular: Yes: Pulse Irregular, S1, S2 Respiratory: Yes: CTA Bilaterally Gastrointestinal: Yes: Normal Bowel Sounds, Soft. No: Tenderness Edema: No Additional Findings/Remarks: - Review of Systems Constitutional: denies: Chills, Fever Cardiovascular: denies: Chest Pain, Palpitations, (-) Shortness of Breath Respiratory: denies: Cough, Hemoptysis, Orthopnea, PND, (-) SOB, SOB on Exertion Gastrointestinal: denies: Abdominal Pain, Constipation, Diarrhea, Melena, Nausea , Rectal Bleeding, Vomiting Neurological: denies: Weakness, (-) Dizziness, Headache, (-) Seizure, (-) Syncope Labs: CBC, BMP 07/28/17 06:40 07/28/17 06:40 INR, PTT INR 1.13 (0.82-1.09) 07/27/17 06:37 Problem List - Problems (1) Anxiety Code(s): F41.9 - ANXIETY DISORDER, UNSPECIFIED (2) Essential hypertension Code(s): I10 - ESSENTIAL (PRIMARY) HYPERTENSION (3) Hypercholesterolemia Code(s): E78.00 - PURE HYPERCHOLESTEROLEMIA, UNSPECIFIED (4) Paroxysmal atrial flutter Code(s): I48.92 - UNSPECIFIED ATRIAL FLUTTER Assessment/Plan 1. Paroxysmal atrial flutter [id number] 2. HTN 3. Hyperlipidemia 4. PTSD, panic attacks, depression and anxiety PLAN: 1. Rate control with beta sade 2. Transthoracic echocardiography to assess LV/RV and valvular function 3. Patient is to be considered Eliquis. Duration of therapy is to be decided 4. Keep NPO for synchronized cardioversion today Further plans are to follow Jac Rojo MD
--- NOTE | 2017-07-28 12:29 | PN ---
Teaching Attending Note Name of Resident: Louis Garcia ATTENDING PHYSICIAN STATEMENT I saw and evaluated the patient. I reviewed the resident's note and discussed the case with the resident. I agree with the resident's findings and plan as documented. SUBJECTIVE: seen before CV No fever or chills. some heaviness on anterior chest, No SOB, . OBJECTIVE: NAD, MMM, symmetric face Cv: RRR. no MRG, no JVD Lungs: CTAB Ext: no edema ASSESSMENT AND PLAN: 47 y/o man with h/o HTN, HLP, PTSD, panic attacks, depression and anxiety who presented with palpitation and light headedness. he was found to have a flutter which converted to A fib with RVR . 1- Aflutter /a fib: over night HR was not controlled. at time of exam he is in A flutter 3 to 1 on cardizem gtt - now s/p CV with sinus rythm and HR 65 - d/w Dr. OLIVER - change meds to toprol 25 mg daily - dc cardizem gtt and hydralazine and lopressor . - cont heparin gtt pending echo - if no valvular etiology then will start leiquis ( if covered by pharmacy ) 2- LAUREN: resolved 3- H/o HTN: hold his home meds for now 4- PTSD, panic, depression : cont home meds 5- leukocytosis, no signs of infection . monitor . if increases can check UA and cxray HLOC
[2017-07-28] MEDS: metoPROLOL SUCCINATE 25 MG TAB.SR.24H (FP) PO SCH ×2 (12:40→12:42)
[2017-07-28 17:48] VITALS: BP 114/84; PULSE 105; TEMP 98.4
[2017-07-28] MEDS ORDERED: APIXABAN 5 MG TABLET PO ONE (19:00)
--- NOTE | 2017-07-28 19:23 | DS ---
Physical Exam: SUBJECTIVE: Patient seen and examined at bedside. no acute events over night. had cardioversion today and will be dc home. Hemodynamically stable and converted to NSR. OBJECTIVE: Vital Signs Period Temp Pulse Resp BP Sys/Garcia Pulse Ox Last 24 Hr 93.7 F-98.8 F 71-112 12-20 95-138/58-86 96-100 PHYSICAL EXAM GENERAL: AAOx3 in NAD HEAD: NC/AT EYES: EOMI, Conjunctiva clear, sclera anicteric ENT: moist mucous membrane NECK: Supple, no JVD LUNGS: CTA B/L HEART: RRR, NSR, normal s1, s2, noM/ R/G ABDOMEN: Soft, ND, NT, +BS 4 Q, no CVA Tenderness LOWER EXTREMITIES: no edema, +2 pulse, B/L scar medial side. NEUROLOGICAL: Cranial nerves II-XII intact. Normal speech. gait not observed. PSYCHIATRIC: Cooperative. Good eye contact. Appropriate mood and affect. SKIN: Warm, dry, LABS Laboratory Results - last 24 hr 07/28/17 07/28/17 07/28/17 01:00 06:40 06:40 WBC 13.8 H RBC 5.40 Hgb 15.4 Hct 47.5 MCV 87.9 MCH 28.5 MCHC 32.5 RDW 13.3 Plt Count 330 MPV 9.0 PTT (Actin FS) 36.5 H 64.8 H D Sodium Potassium Chloride Carbon Dioxide Anion Gap BUN Creatinine POC Glucometer Random Glucose Calcium 07/28/17 07/28/17 06:40 17:44 WBC RBC Hgb Hct MCV MCH MCHC RDW Plt Count MPV PTT (Actin FS) Sodium 139 Potassium 4.4 Chloride 106 Carbon Dioxide 24 Anion Gap 9 BUN 12 Creatinine 1.0 POC Glucometer 118 Random Glucose 136 H Calcium 9.4 CBC, BMP 07/28/17 06:40 07/28/17 06:40 Current Medications Atorvastatin Calcium (Lipitor -) 20 mg PO HS [facility] Last Admin: 07/27/17 21:36 Dose: 20 mg Duloxetine HCl (Cymbalta -) 30 mg PO DAILY [facility] Last Admin: 07/28/17 12:40 Dose: 30 mg Metoprolol Succinate (Toprol Xl -) 50 mg PO DAILY [facility] Last Admin: 07/28/17 12:42 Dose: Not Given Montelukast Sodium (Singulair -) 10 mg PO DAILY [facility] Last Admin: 07/28/17 12:40 Dose: 10 mg Ranitidine HCl (Zantac -) 75 mg PO DAILY [facility] Last Admin: 07/28/17 12:40 Dose: 75 mg Trazodone HCl (Desyrel -) 150 mg PO HS [facility] Last Admin: 07/27/17 21:36 Dose: Not Given HOSPITAL COURSE: Date of Admission:07/26/17 Date of Discharge: 07/28/17 Mr. Thomas is a 47 y/o man with h/o HTN, HLP, PTSD, panic attacks, depression and anxiety who presented with palpitation and light headedness. he was found to have a flutter which converted to A fib with RVR . for Aflutter /a fib: tretaed in ER with metoprolo 5 mg iVpush x3 , and deltiazim 5 ivpush to control his rhyth, he was started on hep drip and cardizim drip. and monitor over night .and the rhythm continue to be Afib alternate with a flutter. senior mechanical engineer was consulted who did CV on him and conerted to NSR. pt will be dc home on toprol xl 50 once daily, ELiquis 5 mg BID , Lortel (2.5-10)capsul , 2 capsule daily.he will follow up with senior mechanical engineer within one week and with his PCP within one week. pt has LAUREN uppon admission improved with hydration. H/o HTN: hold his home meds during the A flutter and continue upon discharged as mention above pt has h/o PTSD, panic, depression : can resume his home meds he has leukocytosis, no signs of infection . will follow up with his PCP within one week. pt is hemodynamically stable with NSR and ready to DC home. his meds was sent to his pharmacy . he verbally understad the dc plan and future follow up. Minutes to complete discharge: 40 Discharge Summary Reason For Visit: CARDIAC ARRHYTHIA Current Active Problems Arrhythmia (Chronic) Palpitations (Chronic) Paroxysmal atrial flutter (Chronic) Condition: Stable - Instructions Diet, Activity, Other Instructions: You came in due to palpitations. We determined that your symptoms were caused by an abnormal fast heart rhythm called atrial flutter. You were seen by a senior mechanical engineer. We optimized your medications so that your heart rate is controlled, however you need to take blood thinners "eliquis" every day and follow up with a senior mechanical engineer within 1 week. You man need a further electrophysiology studies and further procedures Your heart medication is Metoprolol Succinate 25 mg daily Continue taking amlodipine/benazepril Continue taking other home medications Follow up with senior mechanical engineer Dr Huang within 1 week, as soon as possible Follow up with primary care doctor within 2 weeks Return to emergency department if symptoms worsen please check your blood pressure once daily , if BP is less than 100/60 , please notify your doctor Referrals: Jim Huang MD [Staff Physician] - 1 Week Disposition: HOME - Home Medications Comprehensive Discharge Medication List: Ambulatory Orders Duloxetine HCl [Cymbalta] 30 mg PO DAILY 05/03/17 Montelukast Sodium [Singulair] 10 mg PO DAILY 07/26/17 Prazosin HCl 5 mg PO HS 07/26/17 Ranitidine HCl [Zantac 75] 75 mg PO BID 07/26/17 Atorvastatin Calcium [Lipitor] 20 mg PO HS 07/27/17 Trazodone HCl 50 mg PO DAILY 07/27/17 hydrOXYzine PAMOATE [Vistaril -] 50 mg PO TID 07/27/17 Amlodipine Besylate/Benazepril [Lotrel 2.5-10 mg Capsule] 2 cap PO DAILY #60 cap 07/28/17 Apixaban [Eliquis] 5 mg PO BID #60 tablet 07/28/17 Metoprolol Succinate [Toprol Xl] 50 mg PO DAILY #30 tab.er.24h 07/28/17 This patient is new to me today: No Emergency Visit: Yes ED Registration Date: 07/26/17 Care time: The patient presented to the Emergency Department on the above date and was hospitalized for further evaluation of their emergent condition. Critical Care patient: No - Discharge Referral Referred to [facility] No
--- NOTE | 2017-07-28 23:09 | EKG ---
Test Reason : Blood Pressure : / mmHG Vent. Rate : 062 BPM Atrial Rate : 062 BPM P-R Int : 156 ms QRS Dur : 084 ms QT Int : 380 ms P-R-T Axes : 008 -02 007 degrees QTc Int : 385 ms NORMAL SINUS RHYTHM MODERATE VOLTAGE CRITERIA FOR LVH, MAY BE NORMAL VARIANT BORDERLINE ECG WHEN COMPARED WITH ECG OF 28-JUL-2017 08:56, SINUS RHYTHM HAS REPLACED ATRIAL FLUTTER Confirmed by BENITO BOYD, ARMIN ([id number]) on 07/28/2017 11:09:17 PM Referred By: Confirmed By:ARMIN OLIVER MD
--- NOTE | 2017-07-28 23:20 | EKG ---
Test Reason : Blood Pressure : / mmHG Vent. Rate : 087 BPM Atrial Rate : 348 BPM P-R Int : 000 ms QRS Dur : 070 ms QT Int : 352 ms P-R-T Axes : 263 -03 024 degrees QTc Int : 423 ms ATRIAL FLUTTER WITH 4:1 A-V CONDUCTION MINIMAL VOLTAGE CRITERIA FOR LVH, MAY BE NORMAL VARIANT CANNOT RULE OUT INFERIOR INFARCT , POSSIBLY ACUTE ABNORMAL ECG WHEN COMPARED WITH ECG OF 27-JUL-2017 13:11, VENT. RATE HAS DECREASED CLINICAL CORRELATION IS RECOMMENDED Confirmed by ARMIN OLIVER MD ([id number]) on 07/28/2017 11:19:48 PM Referred By: Confirmed By:ARMIN OLIVER MD
--- NOTE | 2017-07-28 23:28 | EKG ---
Test Reason : Blood Pressure : / mmHG Vent. Rate : 159 BPM Atrial Rate : 318 BPM P-R Int : 000 ms QRS Dur : 082 ms QT Int : 244 ms P-R-T Axes : 000 013 215 degrees QTc Int : 396 ms ATRIAL FLUTTER WITH 2:1 A-V CONDUCTION AND RAPID VENTRICULAR RESPONSE ABNORMAL ECG WHEN COMPARED WITH ECG OF 27-JUL-2017 07:00, Confirmed by ARMIN OLIVER MD ([id number]) on 07/28/2017 11:27:52 PM Referred By: Confirmed By:ARMIN OLIVER MD
--- NOTE | 2017-07-30 11:06 | EKG ---
Test Reason : Blood Pressure : / mmHG Vent. Rate : 075 BPM Atrial Rate : 075 BPM P-R Int : 146 ms QRS Dur : 090 ms QT Int : 370 ms P-R-T Axes : 017 013 007 degrees QTc Int : 413 ms NORMAL SINUS RHYTHM WITH SINUS ARRHYTHMIA MINIMAL VOLTAGE CRITERIA FOR LVH, MAY BE NORMAL VARIANT NONSPECIFIC T WAVE ABNORMALITY ABNORMAL ECG WHEN COMPARED WITH ECG OF 28-JUL-2017 10:54, NO SIGNIFICANT CHANGE WAS FOUND Confirmed by DIONISIO RAHMAN MD ([id number]) on 07/30/2017 11:06:05 AM Referred By: Confirmed By:DIONISIO RAHMAN MD
== END 2017-07-28 20:06 | disposition home or self-care (01) | DRG 309 ==
LOC: JER 15:14 → JERBED 17:43 → OBSVTOIN 20:02 → J4W 07-27 17:21
PROVIDERS: ADMIT Internal Medicine; ATTEND Internal Medicine
PROC: 5A2204Z Restoration of Cardiac Rhythm, Single (ICD-10-PCS; principal; 2017-07-28 11:00)
DX: I48.92 Unspecified atrial flutter (principal); N17.9 Acute kidney failure, unspecified; F43.10 Post-traumatic stress disorder, unspecified; F41.8 Other specified anxiety disorders; F41.0 Panic disorder [episodic paroxysmal anxiety]; I10 Essential (primary) hypertension; E78.00 Pure hypercholesterolemia, unspecified; I49.9 Cardiac arrhythmia, unspecified; I48.91 Unspecified atrial fibrillation; J32.8 Other chronic sinusitis; I44.1 Atrioventricular block, second degree; R00.2 Palpitations; D72.828 Other elevated white blood cell count; R42 Dizziness and giddiness
CPT/HCPCS: 36415; 71045-TC; 80048; 80053; 80061; 82550; 82962; 83036; 83721; 83735; 83880; 84443; 84484; 85025; 85027; 85610; 85730; 93005; 93010; 93306-TC; 99285-25; G0378; J1644

== ENCOUNTER 2017-09-13 18:34 | Emergency (ER) | payer BC, OTHER ==
[2017-09-13 18:40] VITALS: BP 119/83; PULSE 80; TEMP 97.8; BMI 32.1
[2017-09-13] MEDS ORDERED: KETOROLAC TROMETHAMINE 30 MG/1 ML VIAL IM ONE (19:22)
[2017-09-13] MEDS ORDERED: KETOROLAC TROMETHAMINE 30 MG/1 ML VIAL ONE (19:23)
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
== END 2017-09-13 20:02 | disposition home or self-care (01) ==
LOC: JERFT 18:34
PROC: 3E0233Z Introduction of Anti-inflammatory into Muscle, Percutaneous Approach (ICD-10-PCS; principal; 2017-09-13)
DX: M54.16 Radiculopathy, lumbar region (principal); M25.511 Pain in right shoulder; V43.52XA Car driver injured in collision with other type car in traffic accident, initial encounter; Y92.414 Local residential or business street as the place of occurrence of the external cause; Y93.89 Activity, other specified; Y99.8 Other external cause status
CPT/HCPCS: 72100-TC-FY; 73030-TC-RT-FY; 99281-25